=== PATIENT | female | born 1945 | race Caucasian/White ===

== ENCOUNTER → 2016-11-03 | Outpatient (CLI) | payer OTHER, BC ==
[~2016-11-03] MED LIST: ACET-1311 PO; ADVIN50050 INH; ALBUAER2 INH; CETI10TA84 PO; FLUO20CA35 PO; GLC500 PO; INSPMPHMLG; LISD40CA PO; LISI1TAB3 PO; ZCRT/40 PO
[2016-11-03 09:56] LABS: ESTIMATED AVERAGE GLUCOSE 169 mg/dl; HA1C FLAG Normal (Normal)
[2016-11-03 10:07] LABS: ALT/SGPT 27 U/L (12-78); BLOOD UREA NITROGEN 20 mg/dl (7-18); BUN/CREATININE RATIO 21.8 (10-20); CALCIUM 9.8 mg/dl (8.5-10.1); CARBON DIOXIDE 32 mmol/L (21-32); CHLORIDE 106 mmol/L (98-107); CREATININE 0.91 mg/dl (0.60-1.20); GLUCOSE 132 mg/dl (70-99); POTASSIUM 4.2 mmol/L (3.5-5.1); SODIUM 140 mmol/L (136-145)
[2016-11-03 10:19] LABS: CHOLESTEROL 210 mg/dl (0-200); CHOLESTEROL/HDL RATIO 4.4; HDL CHOLESTEROL 48 mg/dl; LDL CHOLESTEROL CALCULATED 107 mg/dl; TRIGLYCERIDES 274 mg/dl (0-150); VERY LOW DENSITY LIPOPROT CALC 55 mg/dl
[2016-11-03 10:25] LABS: RATIO 23.2 mcg/mg (0-30.0)
== END | disposition home or self-care (01) ==
LOC: C.LAB1850 08:25
PROVIDERS: ATTEND Family Medicine
DX: I10 Essential (primary) hypertension (principal); E11.49 Type 2 diabetes mellitus with other diabetic neurological complication

== ENCOUNTER → 2017-05-06 | Outpatient (CLI) | payer OTHER, BC ==
[2017-05-06 09:50] LABS: ALT/SGPT 20 U/L (12-78); BLOOD UREA NITROGEN 20 mg/dl (7-18); CALCIUM 9.4 mg/dl (8.5-10.1); CARBON DIOXIDE 29 mmol/L (21-32); CHOLESTEROL 186 mg/dl (0-200); CREATININE 0.95 mg/dl (0.60-1.20); GLUCOSE 172 mg/dl (70-99); POTASSIUM 4.2 mmol/L (3.5-5.1); SODIUM 135 mmol/L (136-145)
[2017-05-06 09:53] LABS: LDL CHOLESTEROL CALCULATED 93 mg/dl
[2017-05-06 09:56] LABS: HEMOGLOBIN A1C 7.5 % (4.5-5.6)
== END | disposition home or self-care (01) ==
LOC: C.LAB1850 08:17
PROVIDERS: ATTEND Nurse Practitioner Family
DX: I10 Essential (primary) hypertension (principal); E78.5 Hyperlipidemia, unspecified; E11.49 Type 2 diabetes mellitus with other diabetic neurological complication

== ENCOUNTER → 2017-07-06 | Outpatient (CLI) | payer OTHER, BC ==
--- NOTE | 2017-07-06 14:57 | MAMMOGRAPHY REPORT ---
BILATERAL DIGITAL SCREENING MAMMOGRAM TOMOSYNTHESIS WITH CAD: 07/06/2017 CLINICAL HISTORY: Routine screening. Patient has no complaints. TECHNIQUE: Breast tomosynthesis in addition to standard 2D mammography was performed. Current study was also evaluated with a Computer Aided Detection (CAD) system. COMPARISON: Comparison is made to exams dated: 04/17/2014 mammogram, 04/13/2013 mammogram, 2 mammogram, 03/19/2011 mammogram, 10/23/2009 mammogram, and 08/30/2005 mammogram - [facility]. BREAST COMPOSITION: There are scattered areas of fibroglandular density in both breasts. FINDINGS: No suspicious masses, calcifications, or areas of architectural distortion are noted in ei ther breast. There has been no significant interval change compared to prior exams. Scattered bilate ral benign-appearing calcifications are again noted. IMPRESSION: ACR BI-RADS CATEGORY 2: BENIGN There is no mammographic evidence of malignancy. A 1 year screening mammogram is recommended. The pa tient will receive written notification of the results. Approximately 10% of breast cancers are not detected with mammography. A negative mammographic report should not delay biopsy if a clinically suggestive mass is present. Karen Aldrich M.D. /:07/06/2017 12:34:58 Impression Printer: Amarilis MITTAL(Ya)(M), [facility] letter sent: Normal 1/2 BI-RADS Code: ACR BI-RADS Category 2: Benign
== END | disposition home or self-care (01) ==
LOC: C.MAMM 10:03
PROVIDERS: ATTEND Family Medicine
DX: Z12.31 Encounter for screening mammogram for malignant neoplasm of breast (principal); M85.80 Other specified disorders of bone density and structure, unspecified site

== ENCOUNTER 2022-06-25 16:53 | Inpatient (IN) ==
[2022-06-25 18:10] LABS: Hematocrit (blood only) 43.3 % (37.0-47.0); Hemoglobin 15.4 g/dl (12.0-16.0); Mean Corpuscular Hemoglobin 31.7 pg (25.0-34.0); Mean Corpuscular Hgb Conc 35.6 g/dL (32.0-36.0); Mean Corpuscular Volume 89.1 fL (80.0-100.0); RDW Coefficient of Variation 12.9 % (11.5-14.5); RDW Standard Deviation 42.1 fL (36.4-46.3); Red Blood Count 4.86 M/uL (4.20-5.40); White Blood Count 9.92 K/ul (4.8-10.8)
[2022-06-25] MEDS ORDERED: NITROGLYCERIN 2% OINTMENT 30GM TUBE EXT STA (18:16)
[2022-06-25] MEDS ORDERED: FAMOTIDINE 20MG IV PUSH 20 MG/5 ML SYR IV STA (18:16)
[2022-06-25] MEDS ORDERED: PANTOprazole 40 MG in SYRINGE 0 ML IV ONE (18:16)
[2022-06-25 18:20] LABS: Basophils # (auto) 0.06 K/uL (0-0.2); Basophils % (auto) 0.6 %; Eosinophils # (auto) 0.05 K/uL (0-0.50); Eosinophils % (auto) 0.5 %; Immature Granulocytes # (auto) 0.06 K/uL (0.01-0.20); Immature Granulocytes % (auto) 0.6 %; Lymphocytes # (auto) 2.07 K/uL (1.2-3.4); Lymphocytes % (auto) 20.9 %; Mean Platelet Volume 11.6 fL (9.4-12.4); Monocytes # (auto) 0.66 K/uL (0.11-0.59); Monocytes % (auto) 6.7 %; Neutrophils # (auto) 7.02 K/uL (1.40-6.50); Neutrophils % (auto) 70.7 %; Platelet Count 158 K/uL (130-400); Platelet Estimate Normal (Normal)
[2022-06-25] MEDS ORDERED: SODIUM CHLORIDE 0.9% 1000ML 1,000 ML IV ONE (18:20)
--- NOTE | 2022-06-25 18:20 | Emergency Department Note ---
Impression & Plan Precordial chest pain, Acute hyperglycemia, SOB (shortness of breath), Acute hyponatremia ED Provider Note NAME: MELVIN CHOWDHURY AGE: 76 SEX: F : 1945 ARRIVES VIA: Ambulance INFORMANT: [Patient][ems] ED PROVIDER(S): [Woody Ruelas MD] CHIEF COMPLAINT: Chest pain HISTORY OF PRESENT ILLNESS: The patient is a 76-year-old female who presents with some chest discomfort that was an 8 and is now with 3. She received 3 nitroglycerin in route and this seemed to make the pain better. She admits that the pain has been with her all day intermittently but then worsened before coming in. The patient describes some mild shortness of breath. No pain radiation. She has not had fever or cough. The patient states that she recently finished prednisone, she stopped 3 days ago. She states that her blood sugar is now quite high. As per EMS, the sugar was 447. Today, in addition to the chest pain, the patient has felt dizzy and weak. She also has had some reflux type symptoms and some pain in the epigastrium, she wonders if she may have gastritis. She has not taken any stomach meds so far. PMHx/PSHx: See Below SOCIAL HISTORY: See Below. PHYSICAL EXAM: GENERAL: Patient is in no acute distress. HEENT: No acute trauma, normocephalic atraumatic, mucous membranes moist, no nasal congestion. NECK: No stridor, no adenopathy, no meningismus, trachea is midline. LUNGS: Clear to auscultation bilaterally, no wheeze, no rhonchi, breath sounds equal. HEART: Without murmurs gallops or rubs, regular rate and rhythm. ABDOMEN: Soft, mildly tender in the epigastrium, no peritonitis. EXTREMITIES: No cyanosis or edema, full range of motion of all the joints without pain or difficulty, no signs for acute trauma. NEUROLOGIC: Oriented x 3, no acute motor or sensory deficits, no focal weakness. SKIN: No rash, no jaundice, no diaphoresis. DIFFERENTIAL DIAGNOSIS: Cardiac ischemia, PR, reflux, gastritis, hyperglycemia, dehydration, electrolyte imbalance, among others. EMERGENCY DEPARTMENT COURSE/PROCEDURES: Prior/Outside records reviewed: EMS records. ECG per my interpretation: Indication was chest pain. The ECG shows a sinus tachycardia with a rate of 106. There is T wave inversion in the high lateral leads. No ST elevation, no PVCs. The QTc is 446. Compared to an ECG from 20 April 2019, the rate has increased. Continuous Cardiac Monitoring per my interpretation: An order was placed for continuous cardiac monitoring. The monitor shows a rate of 97 with normal sinus rhythm.. MEDICAL DECISION MAKING: There is no leukocytosis or concerning anemia. There is a normal platelet count. No coagulopathy. Sodium was low, likely from her higher blood sugar. Blood sugar was over 400. No concerning liver enzyme elevation. ECG showed sinus tachycardia with some T wave inversions in the high lateral leads. No change compared to old ECGs. Cardiac troponin was slightly elevated. This elevation could be secondary to cardiac strain or potentially mismatch. Chest film per my review did not show mediastinal widening, pneumonia or pneumothorax. COVID, influenza and RSV test returned negative. The patient was given IV saline, 1 L. She was given IV Protonix, 1 inch of nitroglycerin paste. She was given IV insulin and IV Pepcid. Patient is feeling improved, given the chest pain improvement with nitroglycerin, given her cardiac risk factors, I do think a hospital stay for further cardiac work-up would be warranted. In addition, patient is hyperglycemic and this will need addressed as well. I suspect the hyperglycemia may be from her recent steroid use. I spoke with the patient and case management, the on-call hospitalist was consulted. Of note, the patient's blood sugar has improved since treatment here in the ED, sugar is now in the 200s. DISPOSITION: Patient's presentation and findings warrant a hospital stay. Past Med/Surg History Medical History Adult ADHD Anxiety disorder Asthma no res inh use for over a year Chronic upper back pain Depression Dyslipidemia Esophageal reflux disease controlled, stable per pt Gluten enteropathy Hearing difficulty Hypertension controlled, stable per pt Obesity Osteopenia Pulmonary nodules monitoring with PCP Skin cancer, basal cell pubic, removed Type 2 diabetes mellitus, with long-term current use of insulin Surgical History History of cataract surgery History of left knee replacement History of tooth extraction Hx of hand surgery S/P appendectomy S/P cholecystectomy S/P emergency section S/P hysterectomy Status post carpal tunnel release of both wrists Status post debridement of bone spur Family History Mother Breast cancer Myocardial infarction Sister Breast cancer Myocardial infarction Uterine cancer Father Myocardial infarction Grandmother Diabetes Grandfather Stroke syndrome Alcohol abuse Family/Other Myocardial infarction Denies family history of Colon cancer Ovarian cancer Prostate cancer Social History Smoking Status: Former smoker Tobacco Type: Cigarettes Age Started Using Tobacco: 14; Age Quit Using Tobacco: 39; packs per day: 1; Cigarettes Per Day: 20; Second Hand Exposure: Yes (mother smoked); Hx Alcohol Use: No Hx Substance Use: No Preferred Language: Lithuanian Communication Ability: Effective Visual Impairment: No Limitations Hearing Ability: Normal Compliance Examiner Required: No Beliefs That Will Affect Care: None marital status: Current Living Situation: Spouse current occupational status: employed 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 Feels Safe at Home: Yes Safety Concerns: Feels Safe At This Time Childhood Exposure to Second-Hand Smoke: No Diet Comment: regular caffeine: Yes during the past year weight has: remained stable Dental Care, Regularly: Yes Physical Activity Frequency: Does not Exercise Seatbelt Use: always Sunscreen Use: Yes Assistive Devices: Glasses Allergies Allergies Allergy/AdvReac Type Severity Reaction Status Date / Time aspirin Allergy Severe SWELLING, Verified 06/25/22 19:36 ANAPHYLACTIC RXN ibuprofen Allergy Severe SWELLING, Verified 06/25/22 19:36 ANAPHYLACTIC RXN NSAIDS (Non-Steroidal Allergy Severe anaphylaxis Verified 06/25/22 19:36 Anti-Inflamma geri Allergy Severe SOB Verified 06/25/22 19:36 Sulfa (Sulfonamide Allergy Severe Anaphylaxis Verified 06/25/22 19:36 Antibiotics) adhesive Allergy Intermediate rash Verified 06/25/22 19:36 gluten Allergy Intermediate ASTHMA Verified 06/25/22 19:36 peanut AdvReac Intermediate Flatulence Verified 06/25/22 19:36 Home Meds Home Medications Medication Instructions Recorded Confirmed cholecalciferol (vitamin D3) 25 4,000 unit PO QAM 12/03/18 06/25/22 mcg (1,000 unit) tablet cyanocobalamin (vitamin B-12) 500 500 mcg PO QAM #100 tabs 12/03/18 06/25/22 mcg tablet lisdexamfetamine 30 mg capsule 30 mg PO QAM #24 caps 12/03/18 06/25/22 (Vyvanse) lysine 500 mg tablet (L-Lysine) 500 mg PO QAM 04/20/19 06/25/22 fluoxetine 20 mg capsule (Prozac) 40 mg PO QAM 10/26/19 06/25/22 acetaminophen 500 mg tablet 500 mg PO BID 04/27/22 06/25/22 (Tylenol Extra Strength) albuterol sulfate 90 mcg/actuation 1 inh inhalation QID PRN Wheezing 04/27/22 06/25/22 breath activated powder inhaler ezetimibe 10 mg tablet 10 mg PO QAM 04/27/22 06/25/22 lisinopril 40 mg tablet (Zestril) 40 mg PO QAM 04/27/22 06/25/22 nystatin-triamcinolone 100,000 1 applic topical BID PRN Rash 04/27/22 06/25/22 unit/g-0.1 % topical cream verapamil 120 mg tablet,extended 120 mg PO QAM 04/27/22 06/25/22 release insulin lispro 100 unit/mL 65 unit continuous subcutaneous 06/25/22 06/25/22 subcutaneous solution (Humalog infusion CONTINOUS U-100 Insulin) Previous Rx's Medication Instructions Recorded atorvastatin 40 mg tablet (Lipitor) 40 mg PO HS #90 tabs 07/15/20 Contour Next Test Strips (blood #360 ea 04/07/21 sugar diagnostic) diclofenac sodium 1 % topical gel 2 g topical QID #100 grams 10/28/21 oxycodone 5 mg tablet 2.5 mg PO Q6H PRN pain (scale 12/16/21 score 7-10) #10 tabs metformin 500 mg tablet,extended 1,000 mg PO BID 30 days #120 tabs 03/23/22 release 24 hr baclofen 5 mg tablet 5 - 10 mg PO DAILY PRN pain #20 06/09/22 tabs Results & Data (ED) Vital Signs Vital Signs - 24 hr 06/25/22 17:18 06/25/22 17:37 06/25/22 16:59 Temperature 37.1 C Temperature Source Oral Pulse Rate 102 H 97 H 106 H Pulse Rate [Apical] Pulse Rate from SpO2 Sensor 106 H Pulse Rhythm Regular Regular Pulse Strength Normal Respiratory Rate 16 16 15 Respiratory Effort / Characteristics Non-Labored Spontaneous Respiratory Depth Normal Respiratory Pattern Regular Blood Pressure 163/94 H Blood Pressure [Right Arm] Blood Pressure Mean 117 Blood Pressure Mean [Right Arm] Pulse Oximetry 94 95 96 Oxygen Delivery Method Room Air Room Air Sepsis Recent Fever Within 48 Hours No Sepsis New/Unexplained Change in Mental Status N/A Sepsis Action Taken by Nursing No Action Required 06/25/22 17:00 06/25/22 17:00 06/25/22 17:10 Temperature Temperature Source Pulse Rate 105 H 100 H Pulse Rate [Apical] Pulse Rate from SpO2 Sensor 105 H 93 H Pulse Rhythm Pulse Strength Respiratory Rate 18 17 Respiratory Effort / Characteristics Respiratory Depth Respiratory Pattern Blood Pressure 163/94 H Blood Pressure [Right Arm] Blood Pressure Mean 117 Blood Pressure Mean [Right Arm] Pulse Oximetry 96 95 Oxygen Delivery Method Sepsis Recent Fever Within 48 Hours Sepsis New/Unexplained Change in Mental Status Sepsis Action Taken by Nursing 06/25/22 17:20 06/25/22 17:30 06/25/22 17:30 Temperature Temperature Source Pulse Rate 100 H 99 H Pulse Rate [Apical] Pulse Rate from SpO2 Sensor 101 H 99 H Pulse Rhythm Pulse Strength Respiratory Rate 18 22 Respiratory Effort / Characteristics Respiratory Depth Respiratory Pattern Blood Pressure 141/91 H Blood Pressure [Right Arm] Blood Pressure Mean 107 Blood Pressure Mean [Right Arm] Pulse Oximetry 96 95 Oxygen Delivery Method Sepsis Recent Fever Within 48 Hours Sepsis New/Unexplained Change in Mental Status Sepsis Action Taken by Nursing 06/25/22 17:40 06/25/22 17:50 06/25/22 18:00 Temperature Temperature Source Pulse Rate 95 H 96 H Pulse Rate [Apical] Pulse Rate from SpO2 Sensor 95 H 96 H Pulse Rhythm Pulse Strength Respiratory Rate 17 17 Respiratory Effort / Characteristics Respiratory Depth Respiratory Pattern Blood Pressure 151/91 H Blood Pressure [Right Arm] Blood Pressure Mean 111 Blood Pressure Mean [Right Arm] Pulse Oximetry 94 95 Oxygen Delivery Method Sepsis Recent Fever Within 48 Hours Sepsis New/Unexplained Change in Mental Status Sepsis Action Taken by Nursing 06/25/22 18:00 06/25/22 18:10 06/25/22 18:20 Temperature Temperature Source Pulse Rate 95 H 97 H 91 H Pulse Rate [Apical] Pulse Rate from SpO2 Sensor 95 H 97 H 91 H Pulse Rhythm Pulse Strength Respiratory Rate 17 20 15 Respiratory Effort / Characteristics Respiratory Depth Respiratory Pattern Blood Pressure Blood Pressure [Right Arm] Blood Pressure Mean Blood Pressure Mean [Right Arm] Pulse Oximetry 95 98 96 Oxygen Delivery Method Sepsis Recent Fever Within 48 Hours Sepsis New/Unexplained Change in Mental Status Sepsis Action Taken by Nursing 06/25/22 18:30 06/25/22 18:30 06/25/22 18:40 Temperature Temperature Source Pulse Rate 90 90 Pulse Rate [Apical] Pulse Rate from SpO2 Sensor 90 90 Pulse Rhythm Pulse Strength Respiratory Rate 19 15 Respiratory Effort / Characteristics Respiratory Depth Respiratory Pattern Blood Pressure 170/82 H Blood Pressure [Right Arm] Blood Pressure Mean 111 Blood Pressure Mean [Right Arm] Pulse Oximetry 96 98 Oxygen Delivery Method Sepsis Recent Fever Within 48 Hours Sepsis New/Unexplained Change in Mental Status Sepsis Action Taken by Nursing 06/25/22 18:50 06/25/22 19:36 06/25/22 19:00 Temperature Temperature Source Pulse Rate 85 87 Pulse Rate [Apical] 85 Pulse Rate from SpO2 Sensor 85 Pulse Rhythm Pulse Strength Respiratory Rate 28 H 20 15 Respiratory Effort / Characteristics Non-Labored Respiratory Depth Normal Respiratory Pattern Blood Pressure Blood Pressure [Right Arm] 163/79 H Blood Pressure Mean Blood Pressure Mean [Right Arm] 107 Pulse Oximetry 98 98 Oxygen Delivery Method Room Air Sepsis Recent Fever Within 48 Hours Sepsis New/Unexplained Change in Mental Status Sepsis Action Taken by Nursing 06/25/22 19:01 06/25/22 19:01 06/25/22 19:15 Temperature Temperature Source Pulse Rate 84 87 Pulse Rate [Apical] Pulse Rate from SpO2 Sensor 87 Pulse Rhythm Pulse Strength Respiratory Rate 22 17 Respiratory Effort / Characteristics Respiratory Depth Respiratory Pattern Blood Pressure 152/87 H Blood Pressure [Right Arm] Blood Pressure Mean 108 Blood Pressure Mean [Right Arm] Pulse Oximetry 96 Oxygen Delivery Method Sepsis Recent Fever Within 48 Hours Sepsis New/Unexplained Change in Mental Status Sepsis Action Taken by Nursing 06/25/22 19:30 06/25/22 19:30 06/25/22 19:45 Temperature Temperature Source Pulse Rate 87 91 H Pulse Rate [Apical] Pulse Rate from SpO2 Sensor 88 91 H Pulse Rhythm Pulse Strength Respiratory Rate 19 18 Respiratory Effort / Characteristics Respiratory Depth Respiratory Pattern Blood Pressure 163/79 H Blood Pressure [Right Arm] Blood Pressure Mean 107 Blood Pressure Mean [Right Arm] Pulse Oximetry 96 97 Oxygen Delivery Method Sepsis Recent Fever Within 48 Hours Sepsis New/Unexplained Change in Mental Status Sepsis Action Taken by Nursing 06/25/22 20:01 06/25/22 20:15 06/25/22 20:30 Temperature Temperature Source Pulse Rate 93 H 89 Pulse Rate [Apical] Pulse Rate from SpO2 Sensor 93 H 89 Pulse Rhythm Pulse Strength Respiratory Rate 22 20 Respiratory Effort / Characteristics Respiratory Depth Respiratory Pattern Blood Pressure 142/89 H Blood Pressure [Right Arm] Blood Pressure Mean 106 Blood Pressure Mean [Right Arm] Pulse Oximetry 96 96 Oxygen Delivery Method Sepsis Recent Fever Within 48 Hours Sepsis New/Unexplained Change in Mental Status Sepsis Action Taken by Nursing 06/25/22 20:30 Temperature Temperature Source Pulse Rate 86 Pulse Rate [Apical] Pulse Rate from SpO2 Sensor 87 Pulse Rhythm Pulse Strength Respiratory Rate 16 Respiratory Effort / Characteristics Respiratory Depth Respiratory Pattern Blood Pressure Blood Pressure [Right Arm] Blood Pressure Mean Blood Pressure Mean [Right Arm] Pulse Oximetry 96 Oxygen Delivery Method Sepsis Recent Fever Within 48 Hours Sepsis New/Unexplained Change in Mental Status Sepsis Action Taken by [facility] Medications Current Medication List: was personally reviewed by me Laboratory Data Attestation: I reviewed the patient's lab results. 06/25/22 17:02 06/25/22 17:02 Lab Results 06/25/22 06/25/22 06/25/22 Range/Units 17:02 17:02 17:02 WBC 9.92 (4.8-10.8) K/ul RBC 4.86 (4.20-5.40) M/uL Hgb 15.4 (12.0-16.0) g/dl Hct 43.3 (37.0-47.0) % MCV 89.1 (80.0-100.0) fL MCH 31.7 (25.0-34.0) pg MCHC 35.6 (32.0-36.0) g/dL RDW Std Deviation 42.1 (36.4-46.3) fL RDW Coeff of Matheus 12.9 (11.5-14.5) % Plt Count 158 (130-400) K/uL MPV 11.6 (9.4-12.4) fL Immature Gran % (Auto) 0.6 % Neut % (Auto) 70.7 % Lymph % (Auto) 20.9 % [place] % (Auto) 6.7 % Eos % (Auto) 0.5 % Baso % (Auto) 0.6 % Neut # (Auto) 7.02 H (1.40-6.50) K/uL Lymph # (Auto) 2.07 (1.2-3.4) K/uL [place] # (Auto) 0.66 H (0.11-0.59) K/uL Eos # (Auto) 0.05 (0-0.50) K/uL Baso # (Auto) 0.06 (0-0.2) K/uL Immature Gran # (Auto) 0.06 (0.01-0.20) K/uL Platelet Estimate Normal (Normal) PT 10.5 (9.0-12.0) Seconds INR 1.0 (0.9-1.1) APTT 20.8 L (21.0-31.0) Seconds PTT Ratio 0.8 Sodium 130 L (136-145) mmol/L Potassium 4.5 (3.5-5.1) mmol/L Chloride 97 L (98-107) mmol/L Carbon Dioxide 23 (21-32) mmol/L Anion Gap 10 (3-11) BUN 31 H (6-23) mg/dl Creatinine 1.00 (0.6-1.2) mg/dl Est Cr Clr Drug Dosing Not Reportable Est GFR ( Amer) 62.5 ml/min Est GFR (Non-Af Amer) 53.9 ml/min BUN/Creatinine Ratio 31.0 H (10-20) Glucose 414 H* (70-99(Fasting)) mg/dl Calcium 10.0 (8.5-10.1) mg/dl Magnesium 1.9 (1.7-2.4) mg/dl Total Bilirubin 0.8 (0.2-1.0) mg/dl AST 12 L (13-39) U/L ALT 17 (7-52) U/L Alkaline Phosphatase 43 (34-104) U/L Troponin I High Sens 14.8 H (0-14) pg/ml Total Protein 6.7 (6.0-8.3) gm/dl Albumin 3.9 (3.4-5.0) gm/dl Globulin 2.8 (2.5-4.0) gm/dl Albumin/Globulin Ratio 1.4 (0.9-2) SARS-CoV-2 (PCR) (Negative) Influenza Type A (PCR) (Neg) Influenza Type B (PCR) (Neg) RSV (RT-PCR) (Neg) 03/09/23 Range/Units 18:50 WBC (4.8-10.8) K/ul RBC (4.20-5.40) M/uL Hgb (12.0-16.0) g/dl Hct (37.0-47.0) % MCV (80.0-100.0) fL MCH (25.0-34.0) pg MCHC (32.0-36.0) g/dL RDW Std Deviation (36.4-46.3) fL RDW Coeff of Matheus (11.5-14.5) % Plt Count (130-400) K/uL MPV (9.4-12.4) fL Immature Gran % (Auto) % Neut % (Auto) % Lymph % (Auto) % [place] % (Auto) % Eos % (Auto) % Baso % (Auto) % Neut # (Auto) (1.40-6.50) K/uL Lymph # (Auto) (1.2-3.4) K/uL [place] # (Auto) (0.11-0.59) K/uL Eos # (Auto) (0-0.50) K/uL Baso # (Auto) (0-0.2) K/uL Immature Gran # (Auto) (0.01-0.20) K/uL Platelet Estimate (Normal) PT (9.0-12.0) Seconds INR (0.9-1.1) APTT (21.0-31.0) Seconds PTT Ratio Sodium (136-145) mmol/L Potassium (3.5-5.1) mmol/L Chloride (98-107) mmol/L Carbon Dioxide (21-32) mmol/L Anion Gap (3-11) BUN (6-23) mg/dl Creatinine (0.6-1.2) mg/dl Est Cr Clr Drug Dosing Est GFR ( Amer) ml/min Est GFR (Non-Af Amer) ml/min BUN/Creatinine Ratio (10-20) Glucose (70-99(Fasting)) mg/dl Calcium (8.5-10.1) mg/dl Magnesium (1.7-2.4) mg/dl Total Bilirubin (0.2-1.0) mg/dl AST (13-39) U/L ALT (7-52) U/L Alkaline Phosphatase (34-104) U/L Troponin I High Sens (0-14) pg/ml Total Protein (6.0-8.3) gm/dl Albumin (3.4-5.0) gm/dl Globulin (2.5-4.0) gm/dl Albumin/Globulin Ratio (0.9-2) SARS-CoV-2 (PCR) NEGATIVE (Negative) Influenza Type A (PCR) Negative (Neg) Influenza Type B (PCR) Negative (Neg) RSV (RT-PCR) Negative (Neg) Administered Medications Insulin Aspart (Insulin Aspart Per Unit) 0 units SC ACHS ARELY Stop: 07/25/22 23:29 Last Admin: 06/25/22 23:41 Dose: 7 units Documented By: CHRISTEL Co-signed By: JAYDEN Discontinued Medications Enoxaparin Sodium (Enoxaparin Inj 40 Mg/0.4 Ml Syr) 40 mg SQ ONE ONE Stop: 06/25/22 23:01 Last Admin: 06/25/22 23:40 Dose: 40 mg Documented By: CHRISTEL Famotidine (Pepcid 20mg Iv Push) 20 mg in 5 mls @ 2.5 mls/min IV NOW STA Stop: 06/25/22 18:17 Last Admin: 06/25/22 18:33 Dose: 2.5 mls/min Documented By: BUCK Pantoprazole Sodium 40 mg/ (Syringe) 10 mls @ 5 mls/min IV NOW ONE Stop: 06/25/22 18:17 Last Admin: 06/25/22 20:17 Dose: 5 mls/min Documented By: BUCK Sodium Chloride (Nss 1000ml) 1,000 mls @ 999 mls/hr IV .Q1H1M ONE Stop: 06/25/22 19:20 Last Infusion: 06/25/22 19:36 Dose: 0 mls/hr Documented By: Admin: 06/25/22 18:34 Dose: 999 mls/hr Documented By: BUCK Insulin Human Regular (Novolin-R Insulin Per Unit Charge) 8 units IV NOW STA Stop: 06/25/22 19:11 Last Admin: 06/25/22 19:34 Dose: 8 units Documented By: TRENT Co-signed By: BUCK Nitroglycerin (Nitroglycerin 2% Ointment 30gm Tube) 1 inch EXT NOW STA Stop: 06/25/22 18:17 Last Admin: 06/25/22 18:33 Dose: 1 inch Documented By: BUCK Imaging Data Attestation: I personally reviewed and interpreted this imaging study as follows: My Impression: Chest x-ray per my review: There is no pneumonia, pneumothorax or mediastinal widening. Discharge Plan Visit Data Chief Complaint: Chest Pain ED Provider: Woody Ruelas Discharge Problem: Precordial chest pain, Acute hyperglycemia, SOB (shortness of breath), Acute hyponatremia Patient Disposition: Admitted As Inpatient Condition: Good Discharge Instructions Interventions: ED Discharge Assessment Last Done: 06/25/22 22:25
[2022-06-25 18:28] LABS: Alanine Aminotransferase 17 U/L (7-52); Albumin Globulin Ratio 1.4 (0.9-2); Albumin Level 3.9 gm/dl (3.4-5.0); Alkaline Phosphatase 43 U/L (34-104); Anion Gap 10 (3-11); Aspartate Aminotransferase 12 U/L (13-39); Bilirubin,Total 0.8 mg/dl (0.2-1.0); Blood Urea Nitrogen 31 mg/dl (6-23); Carbon Dioxide 23 mmol/L (21-32); Chloride 97 mmol/L (98-107); Est GFR (African American) 62.5 ml/min; Est GFR (Non-African American) 53.9 ml/min; Globulin 2.8 gm/dl (2.5-4.0); Glucose 414 mg/dl (70-99(Fasting)); Potassium 4.5 mmol/L (3.5-5.1); Sodium 130 mmol/L (136-145); Total Protein 6.7 gm/dl (6.0-8.3); Troponin I High Sensitivity 14.8 pg/ml (0-14)
[2022-06-25 18:39] LABS: Partial Thromboplastin Ratio 0.8; Partial Thromboplastin Time 20.8 Seconds (21.0-31.0); Prothrombin Time 10.5 Seconds (9.0-12.0)
[2022-06-25 18:52] LABS: Magnesium 1.9 mg/dl (1.7-2.4)
[2022-06-25] MEDS ORDERED: NovoLIN-R INSULIN PER UNIT CHARGE IV STA (19:10)
[2022-06-25 19:43] LABS: Influenza A virus by PCR Negative (Neg); Influenza B virus by PCR Negative (Neg); RSV by PCR Negative (Neg); SARS CoV2 RNA(COVID-19) Ceph NEGATIVE (Negative)
--- NOTE | 2022-06-25 20:15 | History & Physical Report ---
Patient seen and examined. I agree with the history and physical and the plan as outlined in the resident's note. Date of Service June 25, 2022 Assessment & Plan (1) Chest pain: (2) Esophageal reflux disease: (3) Type 2 diabetes mellitus, with long-term current use of insulin: (4) Asthma: (5) Gluten enteropathy: (6) Dyslipidemia: (7) Depression: (8) Anxiety disorder: (9) Hypertension: (10) Hyponatremia: Plan Trinh is a 76F with history of T2DM on insulin, osteopenia, gluten enteropathy, osteoarthritis, GERD, dyslipidemia, depression anxiety, asthma, SNHL, and HTN who presents for evaluation of chest pain. Chest Pain - Acute episode of chest tightness starting at 3PM, ongoing, but tapering away - Patient describes as a bandlike sensation around her chest, a/w epigastric discomfort and substernal pressure - Troponin elevation 14.8, repeat pending - EKG sinus w/o evidence of acute ischemia, repeat ordered (CP ongoing) - Improvement with Nitro in route and Famotidine in ER - Plan CP r/o, admit to med/tele - Echo in 2019 only showing LVH w/ normal EF, Echo ordered - Patient has Saldaña's point at L 2nd intercostal space, consider OMT Epigastric Pain/ GERD - Acute episode of worsening epigastric pain and substernal pressure - Possible association/cause of CP given improvement with Famotidine - Famotidine 20 mg PO BID ordered, can add PPI as indicated - Patient states she has not been taking Baclofen, but symptoms worsened during course of steroids Hyperglycemia (in setting of T2DM on Insulin Pump) - Acute elevations of glucose levels (400+ on admission) - Patient s/p Regular Insulin 8 units in ER - Held insulin pump, placed orders for SSI - Glycemic consult placed - Continue to monitor closely Hyponatremia - Euvolemic on exam - Likely 2/2 acute elevation in glucose level - Patient s/p 1L NSS in ER - Repeat with AM labs Asthma - Chronic, has been stable w/o medical management for many years - Evidence of occasional expiratory wheeze in RANI - Patient not actively dyspneic, SpO2 stable on room air - Support PRN HTN - Continue home regimen Gluten Enteropathy - Gluten Free diet ordered Dyslipidemia - Home statin and ezetimibe held - Restart as indicated Anxiety/Depression - Continue home regimen FEN: Heart Healthy, Carb Consistent, Gluten Free Code status: DNR/DNI DVT ppx: Lovenox Isolation: None Dispo:Med/Tele History of Present Illness Chief Complaint: Chest Pain Primary Care Provider: Swetha Bryant MD Trinh is a 76F with history of T2DM on insulin, osteopenia, gluten enteropathy, osteoarthritis, GERD, dyslipidemia, depression anxiety, asthma, SNHL, and HTN who presents for evaluation of chest pain. Patient notes that she was seen by her PCP a few weeks ago for suspected torticollis and given a steroid taper. She states that while her neck pain has improved, she has been progressively feeling worse since starting the steroids. She notes that she presented to her PCP for acute left sided neck pain w/o radiation. Since then she has been experiencing epigastric pain, abdominal bloating, nausea, and decreased appetite. Despite her decreased appetite, her glucose levels have been elevated in the 400-500 range. She notes that she has been feeling unusually weak in the mornings and having a lot of diarrhea. She continues to urinate well w/o burning or suprapubic pressure. She notes that she has been mildly dyspneic over the last week and that she has a history of asthma that has been controlled without medication for years. Patient's primary reason for presentation today though was that she experienced an episode of tightness in her chest, she said this episode was not notably painful, but that she felt like she had a band tightening around her chest. She notes that it felt somewhat similar to back when she had asthma, like she could not fill her chest with air. She notes that her chest discomfort started around 3PM and while improved, has continued. Patient arrived via EMS and received Nitro x 3 en route, which she notes helped. She received additional relief when she received Famotidine in the ER, which improved her chest discomfort and abdominal pain. Of note, patient endorses difficulty walking her dog around the block over the last three days, she has pain in her legs from a knee injury that has been present for years, and she also notes that she has to elevate the head of her bed to sleep, but this is a chronic problem. Patient was at rest when her chest first started feeling tight this afternoon. She has not noted any recent chest pain with activity. Patient has a history of GERD, but she has not required any medication d/t lack of symptoms for years. Patient's DM is normally managed with a continuous insulin pump at 65 units of Humalog. She notes recent elevations up to 515. Patient expressed repeated concern about the amount of stress she has been in at home. Her is very ill and has a poor prognosis. She notes that this has been negatively affecting her health. She does follow with a therapist at [facility] and is actively managed with Vyvanse and Prozac. EMS: Nitroglycerin x 3, improvement ER: Nitroglycerin x 1, Famotidine, NaCl, Insulin Allergies Allergy/AdvReac Type Severity Reaction Status Date / Time aspirin Allergy Severe SWELLING, Verified 06/25/22 19:36 ANAPHYLACTIC RXN ibuprofen Allergy Severe SWELLING, Verified 06/25/22 19:36 ANAPHYLACTIC RXN NSAIDS (Non-Steroidal Allergy Severe anaphylaxis Verified 06/25/22 19:36 Anti-Inflamma geri Allergy Severe SOB Verified 06/25/22 19:36 Sulfa (Sulfonamide Allergy Severe Anaphylaxis Verified 06/25/22 19:36 Antibiotics) adhesive Allergy Intermediate rash Verified 06/25/22 19:36 gluten Allergy Intermediate ASTHMA Verified 06/25/22 19:36 peanut AdvReac Intermediate Flatulence Verified 06/25/22 19:36 Home Medications Medication Instructions Recorded Confirmed Type cholecalciferol (vitamin D3) 25 4,000 unit PO QAM 12/03/18 06/25/22 History mcg (1,000 unit) tablet cyanocobalamin (vitamin B-12) 500 500 mcg PO QAM #100 tabs 12/03/18 06/25/22 History mcg tablet lisdexamfetamine 30 mg capsule 30 mg PO QAM #24 caps 12/03/18 06/25/22 History (Vyvanse) lysine 500 mg tablet (L-Lysine) 500 mg PO QAM 04/20/19 06/25/22 History fluoxetine 20 mg capsule (Prozac) 40 mg PO QAM 10/26/19 06/25/22 History atorvastatin 40 mg tablet (Lipitor) 40 mg PO HS #90 tabs 07/15/20 06/25/22 Rx Contour Next Test Strips (blood #360 ea 04/07/21 06/15/22 Rx sugar diagnostic) diclofenac sodium 1 % topical gel 2 g topical QID #100 grams 10/28/21 06/25/22 Rx oxycodone 5 mg tablet 2.5 mg PO Q6H PRN pain (scale 12/16/21 06/25/22 Rx score 7-10) #10 tabs metformin 500 mg tablet,extended 1,000 mg PO BID 30 days #120 tabs 03/23/22 06/25/22 Rx release 24 hr acetaminophen 500 mg tablet 500 mg PO BID 04/27/22 06/25/22 History (Tylenol Extra Strength) albuterol sulfate 90 mcg/actuation 1 inh inhalation QID PRN Wheezing 04/27/22 06/25/22 History breath activated powder inhaler ezetimibe 10 mg tablet 10 mg PO QAM 04/27/22 06/25/22 History lisinopril 40 mg tablet (Zestril) 40 mg PO QAM 04/27/22 06/25/22 History nystatin-triamcinolone 100,000 1 applic topical BID PRN Rash 04/27/22 06/25/22 History unit/g-0.1 % topical cream verapamil 120 mg tablet,extended 120 mg PO QAM 04/27/22 06/25/22 History release baclofen 5 mg tablet 5 - 10 mg PO DAILY PRN pain #20 06/09/22 06/25/22 Rx tabs insulin lispro 100 unit/mL 65 unit continuous subcutaneous 06/25/22 06/25/22 History subcutaneous solution (Humalog infusion CONTINOUS U-100 Insulin) Past Med/Surg History Medical History Adult ADHD Anxiety disorder Asthma Chronic upper back pain Depression Dyslipidemia Esophageal reflux disease Gluten enteropathy Hearing difficulty Hypertension Obesity Osteopenia Pulmonary nodules Skin cancer, basal cell Type 2 diabetes mellitus, with long-term current use of insulin Surgical History History of cataract surgery History of left knee replacement History of tooth extraction Hx of hand surgery S/P appendectomy S/P cholecystectomy S/P emergency section S/P hysterectomy Status post carpal tunnel release of both wrists Status post debridement of bone spur Family History Mother Breast cancer Myocardial infarction Sister Breast cancer Myocardial infarction Uterine cancer Father Myocardial infarction Grandmother Diabetes Grandfather Stroke syndrome Alcohol abuse Family/Other Myocardial infarction Denies family history of Colon cancer Ovarian cancer Prostate cancer Social History Smoking Status: Former smoker Tobacco Type: Cigarettes Age Started Using Tobacco: 14; Age Quit Using Tobacco: 39; packs per day: 1; Cigarettes Per Day: 20; Second Hand Exposure: Yes (mother smoked); Hx Alcohol Use: No Hx Substance Use: No Preferred Language: Azeri Communication Ability: Effective Visual Impairment: No Limitations Hearing Ability: Normal Tire Buster Required: No Beliefs That Will Affect Care: None marital status: Current Living Situation: Spouse current occupational status: employed 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 Feels Safe at Home: Yes Childhood Exposure to Second-Hand Smoke: No Diet Comment: regular caffeine: Yes during the past year weight has: remained stable Dental Care, Regularly: Yes Physical Activity Frequency: Does not Exercise Seatbelt Use: always Sunscreen Use: Yes Assistive Devices: Glasses Review of Systems Review of Systems: As per HPI Physical Exam Physical Exam: Gen: NAD, alert, interactive HEENT: Supple, no LAD, no thyromegaly, no JVD Resp:Non-labored, occasional wheeze in RANI, no rhonchi/rales, otherwise CTAB CV:RRR, normal S1/S2, no M/R/G Abd: Soft, non-distended, epigastric/inferior sternal TTP, normoactive bowels, no masses * Patient has tender palpable nodule at 2nd intercoastal space on the left (cardiac Saldaña's point) Extr: 2+ dp bilaterally, no edema Skin: No rashes lesions or erythema Results & Data Results & Data ([facility]) Vital Signs (Past 12 Hours) Vital Signs Temp Pulse Pulse Resp BP BP Pulse Ox 06/25/22 19:36 85 20 163/79 H 98 06/25/22 18:50 85 28 H 98 06/25/22 18:40 90 15 98 06/25/22 18:30 90 19 96 06/25/22 18:30 170/82 H 06/25/22 18:20 91 H 15 96 06/25/22 18:10 97 H 20 98 06/25/22 18:00 95 H 17 95 06/25/22 18:00 151/91 H 06/25/22 17:50 96 H 17 95 06/25/22 17:40 95 H 17 94 06/25/22 17:30 99 H 22 95 06/25/22 17:30 141/91 H 06/25/22 17:20 100 H 18 96 06/25/22 17:10 100 H 17 95 06/25/22 17:00 105 H 18 96 06/25/22 17:00 163/94 H 06/25/22 16:59 106 H 15 96 06/25/22 17:37 97 H 16 95 06/25/22 17:18 37.1 C 102 H 16 163/94 H 94 O2 Del Method 06/25/22 19:36 Room Air 06/25/22 18:50 06/25/22 18:40 06/25/22 18:30 06/25/22 18:30 06/25/22 18:20 06/25/22 18:10 06/25/22 18:00 06/25/22 18:00 06/25/22 17:50 06/25/22 17:40 06/25/22 17:30 06/25/22 17:30 06/25/22 17:20 06/25/22 17:10 06/25/22 17:00 06/25/22 17:00 06/25/22 16:59 06/25/22 17:37 Room Air 06/25/22 17:18 Room Air Diagnostic Findings CXR Read Pending Resident Activity Tracking Resident Involvement: Resident Care Provided Care Provided: Adult Hospital Medicine (1) Chest pain Chest pain type: unspecified Qualified Code(s): R07.9 - Chest pain, unspecified
[2022-06-25] MEDS ORDERED: DEXTROSE 50% 50 ML SYRINGE IV PRN (22:50)
[2022-06-25] MEDS ORDERED: GLUCAGON FOR INJ 1 MG VIAL SQ PRN (22:50)
[2022-06-25] MEDS ORDERED: PHARMACY GLYCEMIC MGMT CONSULT PRN (22:50)
[2022-06-25] MEDS ORDERED: GLUCOSE 10 TAB/TUBE PO PRN (22:50)
[2022-06-25] MEDS ORDERED: GLUCOSE 40% GEL 15 GM TUBE PO PRN (22:50)
[2022-06-25] MEDS ORDERED: CARBOHYDRATES FOR HYPOGLYCEMIA PO PRN (22:50)
[2022-06-25] MEDS ORDERED: ACETAMINOPHEN 325 MG TAB PO PRN (22:50)
[2022-06-25] MEDS ORDERED: ENOXAPARIN INJ 40 MG/0.4 ML SYR SQ ONE (23:00)
[2022-06-25] MEDS ORDERED: ALBUTEROL HFA 8 GM INHALER INH PRN (23:16)
[2022-06-25] MEDS: INSULIN ASPART PER UNIT SC SCH (23:41)
[2022-06-26] MEDS ORDERED: INSULIN ASPART PER UNIT SC ONE (05:45)
--- NOTE | 2022-06-26 07:23 | XRay Report ---
XR chest 1V portable HISTORY: 76 years-old Female Chest pain, nonspecific acute chest pain COMPARISON: Chest CT 12/18/2021 TECHNIQUE: AP view of the chest FINDINGS: Cardiomediastinal and hilar silhouettes are within normal limits. Atherosclerosis of the aorta. No pn eumothorax, pleural effusion, airspace consolidation or pulmonary edema. Degenerative changes of the shoulders and spine. Left shoulder rotator cuff calcific tendinosis. IMPRESSION: No acute process. ACT 112: Negative or not required by law. The above report was generated using voice recognition software. It may contain grammatical, syntax o r spelling errors. Electronically signed by: uLis E Lozano M.D. 06/26/2022 7:21 AM
[2022-06-26] MEDS ORDERED: LANTUS PER UNIT CHARGE SQ SCH (08:00)
[2022-06-26] MEDS: FLUoxetine HCL 20 MG CAP PO SCH (08:01)
[2022-06-26] MEDS: lisinopril 40 MG TAB PO SCH (08:02)
[2022-06-26] MEDS: VERAPAMIL HCL 120 MG TABCR PO SCH (08:02)
[2022-06-26] MEDS: FAMOTIDINE 20 MG TAB PO SCH ×2 (08:02→19:49)
[2022-06-26] MEDS: INSULIN ASPART PER UNIT SC SCH ×3 (08:13→17:23)
[2022-06-26 08:36] LABS: Albumin Level 3.6 gm/dl (3.4-5.0); Bilirubin,Total 0.8 mg/dl (0.2-1.0); Calcium 9.2 mg/dl (8.5-10.1)
[2022-06-26 08:41] LABS: Troponin I High Sensitivity 13.5 pg/ml (0-14)
[2022-06-26 08:42] LABS: Albumin Globulin Ratio 1.6 (0.9-2); BUN Creatinine Ratio 21.5 (10-20); Creatinine Clr Calc Pharmacy 45.9 ml/min; Est GFR (African American) 68.2 ml/min; Est GFR (Non-African American) 58.9 ml/min; Globulin 2.3 gm/dl (2.5-4.0); Total Protein 5.9 gm/dl (6.0-8.3)
[2022-06-26 08:58] LABS: Hematocrit (blood only) 39.8 % (37.0-47.0); Hemoglobin 14.1 g/dl (12.0-16.0); Mean Corpuscular Hemoglobin 31.7 pg (25.0-34.0); Mean Corpuscular Hgb Conc 35.4 g/dL (32.0-36.0); Mean Corpuscular Volume 89.4 fL (80.0-100.0); Mean Platelet Volume 11.2 fL (9.4-12.4); Platelet Count 142 K/uL (130-400); RDW Coefficient of Variation 12.9 % (11.5-14.5); RDW Standard Deviation 42.7 fL (36.4-46.3); Red Blood Count 4.45 M/uL (4.20-5.40); White Blood Count 7.39 K/ul (4.8-10.8)
[2022-06-26 10:22] LABS: Estimated Average Glucose 229 mg/dl; Hemoglobin A1C 9.6 % (4.5-5.6)
[2022-06-26] MEDS ORDERED: ALUMINUM/MAGNESIUM SUSP 18 ML, LIDOCAINE VISCOUS 2% SOLN 6 ML, BARCODE IDENTIFIER 1 EACH PO ONE (10:30)
--- NOTE | 2022-06-26 12:27 | Hospitalist Progress Note ---
Date of Service June 26, 2022 Assessment & Plan (1) Chest pain: Plan: It was more like epigastric pain EKG did not show ant ST changes, Trops wnl Much better this morning, but says the pain recurs whenever she eats (2) Esophageal reflux disease: Plan: Most likely the reason for her epigastric pains Received some relief with protonix Will order GI cocktail (3) Diarrhea: Plan: complains of diarrhea whenever she eats Has a hx of IBD and gluten enteropathy Gluten free diet will check stool for C diff (4) Type 2 diabetes mellitus, with long-term current use of insulin: Plan: Blood glucose is now under better control Insulin pump suspended On sliding scale insulin (5) Asthma: Plan: not in exacerbation (6) Gluten enteropathy: Plan: Gluten free diet (7) Dyslipidemia: (8) Depression: (9) Anxiety disorder: (10) Hypertension: (11) Hyponatremia: Plan Possible d/c in the next 24 hrs Admission and Anticipated Discharge Date Admission Date: June 25, 2022 Subjective patient seen and examined, says epigastic pain is better, but complains of diarrhea whenever she eats Review of Systems Review of Systems: All systems reviewed are negative, apart from the ones contained in the history. Physical Exam Physical Exam: The patient is awake, alert and oriented 3, well developed and well nourished, normocephalic and atraumatic, lying in bed and in no acute distress. HEENT--PERRL, EOMI, mucous membranes and oropharynx mildly dry Neck--supple. No JVD. No bruits. Thyroid normal, trachea midline, no adenopathy. Heart--normal S1 and S2. No murmurs, rubs or gallops. Lungs--clear bilaterally, no respiratory distress, no accessory muscle use. Abdomen--normal bowel sounds and soft. Mild epigastric and left sided abdominal pain Extremities--no cyanosis or clubbing. No edema. Dermatologic--normal skin turgor, normal color, no abnormal lymph nodes, no rash. Neurologic--cranial nerves II through XII grossly intact. Rheumatologic--normal range of motion. Psychiatric--normal affect. Results & Data Results & Data ([facility]) Vital Signs (Past 12 Hours) Vital Signs Temp Pulse Pulse Resp BP BP Pulse Ox 06/26/22 10:52 97.3 F L 67 18 139/78 96 06/26/22 10:10 06/26/22 07:40 97.9 F 74 18 159/92 H 97 06/26/22 07:00 75 06/26/22 03:01 98.8 F 76 16 144/73 H 98 O2 Del Method 06/26/22 10:52 Room Air 06/26/22 10:10 Room Air 06/26/22 07:40 Room Air 06/26/22 07:00 06/26/22 03:01 Room Air PG Care Time/CCT Total # of Minutes Spent Total Time Spent with Patient: Total time spent is greater than 50% in coordination of care (as documented) at patient's floor/unit and/or counseling patient: Coding Level of Care Code 20692 SUB INP/OBS CARE 2/35MIN Diagnoses Chest pain R07.9 Chest pain type: unspecified Esophageal reflux disease K21.9 Diarrhea R19.7 Type 2 diabetes mellitus, with long-term current use of insulin E11.9; Z79.4 Asthma J45.909 Gluten enteropathy K90.41 Dyslipidemia E78.5 Depression F32.9 Anxiety disorder F41.9 Hypertension I10 Hyponatremia E87.1 Time Spent (min) 35 (1) Chest pain Chest pain type: unspecified Qualified Code(s): R07.9 - Chest pain, unspecified
--- NOTE | 2022-06-26 14:20 | Pharmacy Report ---
Pharmacy Glycemic Short Note 2 - Date of Service June 26, 2022 - Glycemic Short BSG Results (Last 24 hours): 06/25/22 06/25/22 06/26/22 17:02 23:08 04:57 Glucose 414 H* POC Glucose 261 H 208 H 06/26/22 06/26/22 07:28 07:39 Glucose 207 H POC Glucose 207 H OUTPATIENT ANTIDIABETIC REGIMEN: * Metformin * Humalog insulin pump * Settings per last outpatient DM visit: Basal 35 units/day, CF 27, CR, 1:9 * A1c = 9.6% ASSESSMENT: * Trinh is a 76 yo T2DM admitted with chest pain. * Severe hyperglycemia on admission. Her insulin pump was removed. Basal + bolus insulin started. * Fasting BSG 207 mg/dL. Patient was without basal insulin for several hours, therefore elevated fasting is not surprising. Will start Lantus 35 units daily. * Will continue home parameters for correction/carb coverage. * Add an overnight check given all BSGs >200 thus far today. PLAN FOR INPATIENT GLYCEMIC CONTROL: * Hold outpatient oral diabetes medications * Basal insulin * Lantus 35 units SQ daily * Bolus insulin * NovoLog per scale ACHS or Q6hrs while NPO * Goal Range: Low 110 mg/dL - High 140 mg/dL * Correction Factor: 25 mg/dL/unit * Nutritional / Prandial insulin per carb ratio of 1 unit per 9 grams CHO consumed
--- NOTE | 2022-06-26 17:10 | XCELERA ---
[id number]
[2022-06-26] MEDS ORDERED: ENOXAPARIN INJ 40 MG/0.4 ML SYR SQ SCH (21:00)
[2022-06-27] MEDS ORDERED: INSULIN ASPART PER UNIT SC SCH
[2022-06-27] MEDS: INSULIN ASPART PER UNIT SC SCH ×3 (01:34→12:13)
[2022-06-27 07:55] LABS: Hematocrit (blood only) 42.8 % (37.0-47.0); Hemoglobin 14.6 g/dl (12.0-16.0); Mean Corpuscular Hemoglobin 31.5 pg (25.0-34.0); Mean Corpuscular Hgb Conc 34.1 g/dL (32.0-36.0); Mean Corpuscular Volume 92.2 fL (80.0-100.0); Mean Platelet Volume 11.1 fL (9.4-12.4); Platelet Count 141 K/uL (130-400); RDW Coefficient of Variation 13.2 % (11.5-14.5); RDW Standard Deviation 44.6 fL (36.4-46.3); Red Blood Count 4.64 M/uL (4.20-5.40); White Blood Count 5.65 K/ul (4.8-10.8)
[2022-06-27] MEDS: FAMOTIDINE 20 MG TAB PO SCH (07:59)
[2022-06-27] MEDS: FLUoxetine HCL 20 MG CAP PO SCH (07:59)
[2022-06-27] MEDS: VERAPAMIL HCL 120 MG TABCR PO SCH (08:00)
[2022-06-27] MEDS: lisinopril 40 MG TAB PO SCH (08:00)
[2022-06-27] MEDS ORDERED: LANTUS PER UNIT CHARGE SQ SCH (08:00)
[2022-06-27 08:20] LABS: Anion Gap 5 (3-11); BUN Creatinine Ratio 19.8 (10-20); Blood Urea Nitrogen 20 mg/dl (6-23); Calcium 9.7 mg/dl (8.5-10.1); Carbon Dioxide 27 mmol/L (21-32); Chloride 104 mmol/L (98-107); Est GFR (African American) 61.7 ml/min; Est GFR (Non-African American) 53.3 ml/min; Glucose 241 mg/dl (70-99(Fasting)); Sodium 136 mmol/L (136-145)
--- NOTE | 2022-06-27 09:09 | Electrocardiogram Report ---
Test Reason : Blood Pressure : / mmHG Vent. Rate : 106 BPM Atrial Rate : 106 BPM P-R Int : 152 ms QRS Dur : 086 ms QT Int : 336 ms P-R-T Axes : 050 -35 081 degrees QTc Int : 446 ms Sinus tachycardia Left axis deviation Nonspecific ST abnormality Abnormal ECG When compared with ECG of 04-MAY-2022 14:14, Criteria for Septal infarct are no longer Present Confirmed by Linwood Stafford ([id number]) on 06/27/2022 9:08:43 AM Referred By: REFERRED SELF Confirmed By:Linwood Stafford
[2022-06-27] MEDS ORDERED: ALUMINUM/MAGNESIUM SUSP 18 ML, LIDOCAINE VISCOUS 2% SOLN 6 ML, BARCODE IDENTIFIER 1 EACH PO ONE (09:14)
--- NOTE | 2022-06-27 09:17 | Electrocardiogram Report ---
Test Reason : Blood Pressure : / mmHG Vent. Rate : 074 BPM Atrial Rate : 074 BPM P-R Int : 170 ms QRS Dur : 084 ms QT Int : 392 ms P-R-T Axes : 052 -30 111 degrees QTc Int : 435 ms Normal sinus rhythm Left axis deviation T wave abnormality, consider lateral ischemia Abnormal ECG When compared with ECG of 25-JUN-2022 16:57, (unconfirmed) T wave inversion more evident in Lateral leads Confirmed by Linwood Stafford ([id number]) on 06/27/2022 9:17:23 AM Referred By: REFERRED SELF Confirmed By:Linwood Stafford
--- NOTE | 2022-06-27 11:15 | Discharge Summary ---
Date of Service June 27, 2022 Admission HPI Per Admitting Provider Trinh is a 76F with history of T2DM on insulin, osteopenia, gluten enteropathy, osteoarthritis, GERD, dyslipidemia, depression anxiety, asthma, SNHL, and HTN who presents for evaluation of chest pain. Patient notes that she was seen by her PCP a few weeks ago for suspected torticollis and given a steroid taper. She states that while her neck pain has improved, she has been progressively feeling worse since starting the steroids. She notes that she presented to her PCP for acute left sided neck pain w/o radiation. Since then she has been experiencing epigastric pain, abdominal bloating, nausea, and decreased appetite. Despite her decreased appetite, her glucose levels have been elevated in the 400-500 range. She notes that she has been feeling unusually weak in the mornings and having a lot of diarrhea. She continues to urinate well w/o burning or suprapubic pressure. She notes that she has been mildly dyspneic over the last week and that she has a history of asthma that has been controlled without medication for years. Patient's primary reason for presentation today though was that she experienced an episode of tightness in her chest, she said this episode was not notably painful, but that she felt like she had a band tightening around her chest. She notes that it felt somewhat similar to back when she had asthma, like she could not fill her chest with air. She notes that her chest discomfort started around 3PM and while improved, has continued. Patient arrived via EMS and received Nitro x 3 en route, which she notes helped. She received additional relief when she received Famotidine in the ER, which improved her chest discomfort and abdominal pain. Of note, patient endorses difficulty walking her dog around the block over the last three days, she has pain in her legs from a knee injury that has been present for years, and she also notes that she has to elevate the head of her bed to sleep, but this is a chronic problem. Patient was at rest when her chest first started feeling tight this afternoon. She has not noted any recent chest pain with activity. Patient has a history of GERD, but she has not required any medication d/t lack of symptoms for years. Patient's DM is normally managed with a continuous insulin pump at 65 units of Humalog. She notes recent elevations up to 515. Patient expressed repeated concern about the amount of stress she has been in at home. Her is very ill and has a poor prognosis. She notes that this has been negatively affecting her health. She does follow with a therapist at [facility] and is actively managed with Vyvanse and Prozac. EMS: Nitroglycerin x 3, improvement ER: Nitroglycerin x 1, Famotidine, NaCl, Insulin Principal Diagnosis GERD Discharge Exam The patient is awake, alert and oriented 3, well developed and well nourished, normocephalic and atraumatic, lying in bed and in no acute distress. HEENT--PERRL, EOMI, mucous membranes and oropharynx mildly dry Neck--supple. No JVD. No bruits. Thyroid normal, trachea midline, no adenopathy. Heart--normal S1 and S2. No murmurs, rubs or gallops. Lungs--clear bilaterally, no respiratory distress, no accessory muscle use. Abdomen--normal bowel sounds and soft. Mild epigastric and left sided abdominal pain Extremities--no cyanosis or clubbing. No edema. Dermatologic--normal skin turgor, normal color, no abnormal lymph nodes, no rash. Neurologic--cranial nerves II through XII grossly intact. Rheumatologic--normal range of motion. Psychiatric--normal affect. Discharge Data Allergies Allergy/AdvReac Type Severity Reaction Status Date / Time aspirin Allergy Severe SWELLING, Verified 06/25/22 19:36 ANAPHYLACTIC RXN ibuprofen Allergy Severe SWELLING, Verified 06/25/22 19:36 ANAPHYLACTIC RXN NSAIDS (Non-Steroidal Allergy Severe anaphylaxis Verified 03/09/23 19:36 Anti-Inflamma geri Allergy Severe SOB Verified 06/25/22 19:36 Sulfa (Sulfonamide Allergy Severe Anaphylaxis Verified 06/25/22 19:36 Antibiotics) adhesive Allergy Intermediate rash Verified 06/25/22 19:36 gluten Allergy Intermediate ASTHMA Verified 06/25/22 19:36 peanut AdvReac Intermediate Flatulence Verified 06/25/22 19:36 Consultations 06/25/22 19:34 ED Decision to Admit Stat Hospital Course (1) Chest pain: It was more like epigastric pain EKG did not show ant ST changes, Trops wnl Much better this morning, but says the pain recurs whenever she eats (2) Esophageal reflux disease: Most likely the reason for her epigastric pains Received some relief with protonix GI cocktail gave her even more relief (3) Diarrhea: complains of diarrhea whenever she eats Has a hx of IBD and gluten enteropathy Gluten free diet will check stool for C diff (4) Type 2 diabetes mellitus, with long-term current use of insulin: Blood glucose is now under better control Insulin pump suspended On sliding scale insulin (5) Asthma: not in exacerbation (6) Gluten enteropathy: Gluten free diet (7) Dyslipidemia: (8) Depression: (9) Anxiety disorder: (10) Hypertension: (11) Hyponatremia: Plan d/c home Total Time Total Time Spent Total Time Spent (In Minutes): 35 Discharge Plan Discharge Items Patient Disposition: Home - Self-Care Reason For Visit: CHEST PAIN Discharge Diagnosis: GERD Condition on Discharge: Good Activity: Resume your previous activity Non-emergency contact: Primary Care Provider Call non-emergency contact if: you have any medication questions Follow-up/Referrals: Swetha Bryant MD [Primary Care Provider] - Diet: Regular Addtl Attending Provider Instructions: please make appointment to follow up with your regular PCP Pending Studies at Discharge: No Stand-Alone Forms: My [employer], Smoking Cessation Medications and DC Order Prescriptions: New pantoprazole [Protonix] 40 mg tablet,delayed release (DR/EC) 40 mg PO DAILY Qty: 30 0RF Continued atorvastatin [Lipitor] 40 mg tablet 40 mg PO HS Qty: 90 3RF (DME) Contour Next Test Strips Strip See Dose Instructions .ROUTE .MEDSUPPLY Qty: 360 3RF Dose Instruction: As directed Rx Instructions: Test 4 times daily metformin 500 mg tablet extended release 24 hr 1,000 mg PO BID 30 Days Qty: 120 5RF baclofen 5 mg tablet 5 - 10 mg PO DAILY PRN (Reason: pain) Qty: 20 0RF oxycodone 5 mg tablet 2.5 mg PO Q6H PRN (Reason: pain (scale score 7-10)) Qty: 10 0RF diclofenac sodium 1 % gel 2 g topical QID Qty: 100 2RF Rx Instructions: apply to knee cholecalciferol (vitamin D3) 1,000 unit (25 mcg) tablet 4,000 unit PO QAM cyanocobalamin (vitamin B-12) 500 mcg tablet 500 mcg PO QAM Qty: 100 Vyvanse 30 mg capsule 30 mg PO QAM Qty: 24 lysine [L-Lysine] 500 mg Tablet 500 mg PO QAM fluoxetine [Prozac] 20 mg capsule 40 mg PO QAM verapamil 120 mg tablet extended release 120 mg PO QAM Rx Instructions: Take 1 tablet by mouth once daily nystatin-triamcinolone 100,000-0.1 unit/g-% cream 1 applic topical BID PRN (Reason: Rash) lisinopril [Zestril] 40 mg tablet 40 mg PO QAM ezetimibe 10 mg tablet 10 mg PO QAM acetaminophen [Tylenol Extra Strength] 500 mg Tablet 500 mg PO BID albuterol sulfate 90 mcg/actuation Aerosol Powdr Breath Activated 1 inh INHALATION QID PRN (Reason: Wheezing) insulin lispro [Humalog U-100 Insulin] 100 unit/mL solution 65 unit continuous subcutaneous infusion CONTINOUS Rx Instructions: Via insulin pump ; TDD 65 units Discharge Orders: Discharge Order (Routine); Ordered 06/27/22 Ordered By: Chavez Ariza Admission Data Admit Date/Time: 06/25/22 21:03 Attending Provider: Chavez Ariza Admit Provider: Ilene Kerr Primary Care Provider: Swetha Bryant Other Providers: Jeremy Cardozo Coding Level of Care Code 84302 INP/OBS DISCH >30 MIN Diagnoses Chest pain R07.9 Chest pain type: unspecified Esophageal reflux disease K21.9 Diarrhea R19.7 Type 2 diabetes mellitus, with long-term current use of insulin E11.9; Z79.4 Asthma J45.909 Gluten enteropathy K90.41 Dyslipidemia E78.5 Depression F32.9 Anxiety disorder F41.9 Hypertension I10 Hyponatremia E87.1 Time Spent (min) 35
--- NOTE | 2022-06-27 14:29 | Electrocardiogram Report ---
Test Reason : Blood Pressure : / mmHG Vent. Rate : 066 BPM Atrial Rate : 066 BPM P-R Int : 172 ms QRS Dur : 084 ms QT Int : 404 ms P-R-T Axes : 036 -36 088 degrees QTc Int : 423 ms Poor data quality, interpretation may be adversely affected Normal sinus rhythm Left axis deviation Robert Septal infarct , age undetermined Abnormal ECG When compared with ECG of 26-JUN-2022 05:09, (unconfirmed) Robert Septal infarct is now Present Confirmed by Ever Dumont ([id number]) on 06/27/2022 2:29:06 PM Referred By: REFERRED SELF Confirmed By:Ever Dumont
== END 2022-06-27 13:33 | disposition home or self-care (01) | DRG 392 ==
LOC: ED 16:53 → 2W 21:03 → SUATTDRO 21:03 → 2W 22:25

== ENCOUNTER 2023-07-19 06:31 | Observation (INO) ==
--- NOTE | 2023-01-05 10:58 | PAT Medication Instructions ---
Medication Instructions Date of Service January 05, 2023 Home Medications Medication Instructions Recorded atorvastatin 40 mg tablet (Lipitor) 40 mg PO HS #90 tabs 07/15/20 diclofenac sodium 1 % topical gel 2 g topical QID #100 grams 10/28/21 baclofen 5 mg tablet 5 - 10 mg PO DAILY PRN pain #20 06/09/22 tabs verapamil 120 mg tablet,extended 120 mg PO QAM #90 tabs 07/30/22 release Contour Next Meter (blood-glucose #1 ea 09/17/22 meter) Contour Next Test Strips (blood #400 ea 09/17/22 sugar diagnostic) insulin lispro 100 unit/mL 65 unit (0.65 mL) subcut DAILY #20 09/18/22 subcutaneous solution (Humalog mL U-100 Insulin) insulin syringe-needle U-100 1 mL #100 ea 09/18/22 30 gauge x 1/2" (BD Insulin Syringe Ultra-Fine) lisinopril 40 mg tablet (Zestril) 40 mg PO QAM #30 tabs 12/18/22 metformin 500 mg tablet,extended 1,000 mg PO BID 30 days #120 tabs 12/18/22 release 24 hr cyanocobalamin (vitamin B-12) 500 mcg tablet 500 mcg PO QAM lisdexamfetamine 30 mg capsule (Vyvanse) 30 mg PO QAM lysine 500 mg tablet (L-Lysine) 500 mg PO QAM atorvastatin 40 mg tablet (Lipitor) 40 mg PO HS diclofenac sodium 1 % topical gel 2 g topical QID acetaminophen 500 mg tablet (Tylenol Extra Strength) 500 mg PO BID albuterol sulfate 90 mcg/actuation breath activated powder inhaler 1 inh inhalation QID PRN Wheezing ezetimibe 10 mg tablet 10 mg PO QAM baclofen 5 mg tablet 5 - 10 mg PO DAILY PRN pain verapamil 120 mg tablet,extended release 120 mg PO QAM insulin lispro 100 unit/mL subcutaneous solution (Humalog U-100 Insulin) 65 unit (0.65 mL) subcut DAILY fluoxetine 40 mg capsule 40 mg PO QAM pantoprazole 40 mg tablet,delayed release 40 mg PO QAM PRN reflux lisinopril 40 mg tablet (Zestril) 40 mg PO QAM metformin 500 mg tablet,extended release 24 hr 1,000 mg PO BID cholecalciferol (vitamin D3) 125 mcg (5,000 unit) tablet (Vitamin D3) 125 mcg PO QAM ASK your surgeon for instructions diclofenac sodium 1 % topical gel 2 g topical QID STOP taking 2 weeks before surgery lysine 500 mg tablet (L-Lysine) 500 mg PO QAM DO NOT take the morning of surgery cyanocobalamin (vitamin B-12) 500 mcg tablet 500 mcg PO QAM lisdexamfetamine 30 mg capsule (Vyvanse) 30 mg PO QAM lisinopril 40 mg tablet (Zestril) 40 mg PO QAM metformin 500 mg tablet,extended release 24 hr 1,000 mg PO BID cholecalciferol (vitamin D3) 125 mcg (5,000 unit) tablet (Vitamin D3) 125 mcg PO QAM Take morning of surgery With a small sip of water, OTHERWISE NOTHING TO EAT OR DRINK AFTER MIDNIGHT: acetaminophen 500 mg tablet (Tylenol Extra Strength) 500 mg PO BID albuterol sulfate 90 mcg/actuation breath activated powder inhaler 1 inh inhalation QID PRN Wheezing (use if needed; please bring with you to hospital day of surgery if possible) ezetimibe 10 mg tablet 10 mg PO QAM verapamil 120 mg tablet,extended release 120 mg PO QAM baclofen 5 mg tablet 5 - 10 mg PO DAILY PRN pain (if needed) fluoxetine 40 mg capsule 40 mg PO QAM pantoprazole 40 mg tablet,delayed release 40 mg PO QAM PRN reflux (if needed) Take evening before surgery atorvastatin 40 mg tablet (Lipitor) 40 mg PO HS acetaminophen 500 mg tablet (Tylenol Extra Strength) 500 mg PO BID albuterol sulfate 90 mcg/actuation breath activated powder inhaler 1 inh inhalation QID PRN Wheezing (if needed) baclofen 5 mg tablet 5 - 10 mg PO DAILY PRN pain (if needed) metformin 500 mg tablet,extended release 24 hr 1,000 mg PO BID Insulin Dependent Diabetic Patients insulin lispro 100 unit/mL subcutaneous solution (Humalog U-100 Insulin) 65 unit (0.65 mL) subcut DAILY (check with prescribing provider regarding insulin pump instructions (typically insulin pump set to basal rate after midnight prior to surgery with no boluses) Other Notes If you have any questions please call us at [phone] or [phone] or [phone] or [phone]
--- NOTE | 2023-01-11 11:57 | Anesthesiology Consultation ---
Date of Service January 11, 2023 Assessment & Plan (1) Encounter for pre-operative examination: Chart Review Chart Review: Acceptable Risk for Surgery (pending 01/14/23 allergy appt and surgeon's response re: elevated Hgb A1C ) and Patient seen in Pre Admission Testing - Awaiting allergy appt (01/14/23) ([place]) - Pending response from surgeon's office re: elevated Hgb A1C - Check BSG AM DOS - Pt is NOT an OPJ candidate due to age and comorbidities (currently 23 hour obs) Per PAT appt on 01/11/23, no recent illness/disease exposures, illness related symptoms, or recent illness/disease positive tests. Will leave to surgeon's discretion if preop Covid testing needed Teaching & Discussion Pre-Anesthesia Teaching/Discussion Notes: Instructed NPO after midnight before surgery,except medications with 15 cc of water. Medication instructions provided according to the PAT guidelines. History Surgery Operation Date: 02/15/23 10:15 Proposed Procedures p Right Total Knee Arthroplasty - Jericho Mccall, Height/Weight Height: 5 ft 1 in Weight: 74.7 kg Allergies Allergy/AdvReac Type Severity Reaction Status Date / Time aspirin Allergy Severe SWELLING, Verified 01/04/23 08:03 ANAPHYLACTIC RXN ibuprofen Allergy Severe SWELLING, Verified 01/04/23 08:03 ANAPHYLACTIC RXN NSAIDS (Non-Steroidal Allergy Severe anaphylaxis Verified 01/04/23 08:03 Anti-Inflamma geri Allergy Severe SOB Verified 01/04/23 08:03 Sulfa (Sulfonamide Allergy Severe Anaphylaxis Verified 01/04/23 08:03 Antibiotics) adhesive Allergy Intermediate rash Verified 01/04/23 08:03 gluten Allergy Intermediate ASTHMA Verified 01/04/23 08:03 peanut AdvReac Intermediate Flatulence Verified 01/04/23 08:03 Medications Home Medications Medication Instructions Recorded Confirmed Last Taken cyanocobalamin (vitamin B-12) 500 500 mcg PO QAM #100 tabs 12/03/18 01/04/23 06/25/22 mcg tablet lisdexamfetamine 30 mg capsule 30 mg PO QAM #24 caps 12/03/18 01/04/23 06/25/22 (Vyvanse) lysine 500 mg tablet (L-Lysine) 500 mg PO QAM 04/20/19 01/04/23 06/25/22 atorvastatin 40 mg tablet (Lipitor) 40 mg PO HS #90 tabs 07/15/20 01/04/23 06/24/22 diclofenac sodium 1 % topical gel 2 g topical QID #100 grams 10/28/21 01/04/23 06/25/22 12:00 acetaminophen 500 mg tablet 500 mg PO BID 04/27/22 01/04/23 06/25/22 08:00 (Tylenol Extra Strength) albuterol sulfate 90 mcg/actuation 1 inh inhalation QID PRN Wheezing 04/27/22 01/04/23 Unknown breath activated powder inhaler ezetimibe 10 mg tablet 10 mg PO QAM 04/27/22 01/04/23 06/25/22 baclofen 5 mg tablet 5 - 10 mg PO DAILY PRN pain #20 06/09/22 01/04/23 Unknown tabs verapamil 120 mg tablet,extended 120 mg PO QAM #90 tabs 07/30/22 01/04/23 Unknown release Contour Next Meter (blood-glucose #1 ea 09/17/22 12/18/22 Unknown meter) Contour Next Test Strips (blood #400 ea 09/17/22 12/18/22 Unknown sugar diagnostic) insulin lispro 100 unit/mL 65 unit (0.65 mL) subcut DAILY #20 09/18/22 01/04/23 Unknown subcutaneous solution (Humalog mL U-100 Insulin) insulin syringe-needle U-100 1 mL #100 ea 09/18/22 12/18/22 Unknown 30 gauge x 1/2" (BD Insulin Syringe Ultra-Fine) fluoxetine 40 mg capsule 40 mg PO QAM 10/19/22 01/04/23 Unknown pantoprazole 40 mg tablet,delayed 40 mg PO QAM PRN reflux 12/07/22 01/04/23 Unknown release lisinopril 40 mg tablet (Zestril) 40 mg PO QAM #30 tabs 12/18/22 01/04/23 Unknown metformin 500 mg tablet,extended 1,000 mg PO BID 30 days #120 tabs 12/18/22 01/04/23 Unknown release 24 hr cholecalciferol (vitamin D3) 125 125 mcg PO QAM 01/04/23 01/04/23 Unknown mcg (5,000 unit) tablet (Vitamin D3) Past Medical History Medical History (Updated 01/11/23 @ 16:10 by Suyapa Hill PA-C) Adult ADHD Anxiety disorder Asthma no res inh use for a long time "in remission" well controlled and stable Cardiac murmur No significant valve issues noted on 08/03/22 ECHO Follows with PCP Chronic upper back pain Depression Diabetic neuropathy Hands and feet Dyslipidemia Esophageal reflux disease well controlled and stable Gluten enteropathy Hearing difficulty No hearing aids needed at this time Hypertension Insulin pump in place Obesity Osteopenia Pulmonary nodules monitoring with PCP- stable per 12/[address] Skin cancer, basal cell pubic, removed Stress incontinence Type 2 diabetes mellitus, with long-term current use of insulin insulin pump Hgb A1C 9.0 with 01/11/23 preop labs Exercise / Class Metabolic Activity II 4-5 Yardwork/Stairs/Walk up hill (one flight of stairs - no chest pain or SOB ) Past Family History Family History Mother Myocardial infarction Breast cancer Sister Myocardial infarction Breast cancer Uterine cancer Father Myocardial infarction Grandmother Diabetes Grandfather Alcohol abuse Stroke syndrome Family/Other Myocardial infarction Other No family history of adverse response to anesthesia Denies family history of Colon cancer Ovarian cancer Prostate cancer Past Surgical History Surgical History H/O total hysterectomy History of cataract surgery bilat History of left knee replacement History of tonsillectomy and adenoidectomy History of tooth extraction Hx of hand surgery left little finger repaired after fall S/P appendectomy S/P cholecystectomy S/P emergency section X1 total Status post carpal tunnel release of both wrists Status post debridement of bone spur heels bilat Social History Smoking Status: Former smoker tobacco type: cigarettes Smoking cigarettes per day: quit 1985 Do You Dip or Chew Tobacco: No Hx Alcohol Use: No substance use type: does not use Review of Systems - Chronic cough - due to allergies- mild and stable Patient denies chest pain, shortness of breath, dyspnea on exertion, wheezing, palpitations. No hx of seizures, stroke, PR, apnea/snoring. No hx of blood clots or blood transfusions Physical Exam Vital Signs VITALS BP155/77 P 71 TEMP 98.3 SP02 95% RESP 16 Constitutional no acute distress ENMT Mouth: no TMJ clicking Thyromental Distance: > or= 3.5 Finger Breadths (3.5) Mallampati Class: I Mouth / Teeth: 1. Missing Neck + limited neck extension (mild) Respiratory normal respiratory effort; no respiratory distress Auscultation: lungs clear to auscultation bilaterally; no wheezes Cardiovascular Rate/Rhythm: regular rate and regular rhythm Heart Sounds: + murmur (II/ murmur) Vessels: no carotid bruit Musculoskeletal Spine: + pain with cervical ROM (mild) Extremities: extremities normal to inspection Psychiatric Orientation: alert Lab Results Anesthesia Preop Results Results Anesthesia Widget: WBC 8.58 K/ul (4.8-10.8) 01/11/23 Hgb 13.7 g/dl (12.0-16.0) 01/11/23 Hct 40.9 % (37.0-47.0) 01/11/23 Plt 175 K/uL (130-400) 01/11/23 Na 135 mmol/L (136-145) L 01/11/23 K 4.4 mmol/L (3.5-5.1) 01/11/23 Cl 103 mmol/L (98-107) 01/11/23 CO2 27 mmol/L (21-32) 01/11/23 BUN 27 mg/dl (6-23) H 01/11/23 Creat 0.76 mg/dl (0.6-1.2) 01/11/23 Glucose Level 220 mg/dl (70-99(Fasting)) H 01/11/23 PT 10.9 Seconds (9.0-12.0) 01/11/23 PTT 26.0 Seconds (21.0-31.0) 01/11/23 INR 1.0 (0.9-1.1) 01/11/23 HA1c 9.0 % (4.5-5.6) H 01/11/23 Blood Type A Negative 01/11/23 Antibody Screen NEGATIVE 01/11/23 Testing Laboratory Results Surgeon's office informed of elevated Hgb A1C - will leave to surgeon's discretion on how to proceed Electrocardiogram Date: 10/20/22 Findings: + NSR @ (65bpm ) Minimal voltage criteria for LVH, may be normal variant Nonspecific T wave abnormality Septal infarct (cited on or before June 27, 2022) When compared EKG from June 27, 2022no significant changes found (Poor R wave progression since at least 2019 on previous EKGs) Chest X-Ray Date: 10/20/22 FINDINGS: An AP, portable, upright chest radiograph is compared to study dated 06/25/2022 and correlated with chest CT dated 12/18/2021. The cardiomediastinal silhouette is top normal for projection noting atherosclerotic calcification of the thoracic aorta. Chronic interstitial thickening is similar to previous. There is mild bibasilar scarring/atelectasis. The lungs and pleural spaces are otherwise clear. No pneumothorax is seen. The skeletal structures are osteopenic. The bony thorax is grossly intact. IMPRESSION: No active disease in the chest. Echocardiogram Date: 08/03/22 EF: 65-70% LV Function: normal RWMA: + none Other Findings: + LVH (mild/concentric ) Compared with study of 06/26/22, no significant change was found
--- NOTE | 2023-06-15 11:39 | Anesthesiology Consultation ---
Date of Service June 15, 2023 Assessment & Plan (1) Encounter for pre-operative examination: Chart Review Chart Review: Acceptable Risk for Surgery (pending surgeon approval of patient proceeding from surgical standpoint due to diabetes) and Patient NOT seen in Pre Admission Testing Patient initially scheduled for procedure 02/15/23 (rescheduled due to closed fracture of distal end of left radius) - Check BSG AM DOS - Patient is NOT an OPJ candidate -Infectious Disease screening: Per PAT nursing assessment on 06/15/23. No known infectious disease contacts in past 10 days or current infectious disease sym ptoms. No recent travel outside the country. Seen by Diabetes Clinic 06/14/23= Type 2 diabetesglucose control poorvery important to improve given DKA scheduled 06/25/2023. Likely needs more basal coveragebasal 36 units daily when on pump). Increase Tresiba (basal) from 20 to 24 units/day. Slow increase due to occasional FS readings in 90ssuspect more from Humalog but not 100% sure. Advised can take Tresiba and Humalog together, will now take Humalog for breakfast. Advised prebolusing 15 minutes before meals. Follow-up in 1 week. Patient interested in GLP-1cannot start until after TKA. Seen by allergy 01/25/23= "We performed a graded challenge to aspirin today, which was negative... Given negative challenge, it would be safe for her to use 81 mg aspirin daily. We also discussed today that NSAID reactions can occur across a variety of mechanisms. In patients with IgE mediated allergies, they are usually able to tolerate other NSAID family members without any problems as each NSAID is distinct chemically. In other cases, patients may have an idiosyncratic reaction to NSAIDs where all NSAIDs can trigger symptoms, though there might be a dose-dependent effect where higher doses are needed to trigger symptoms. If she needs a different NSAID for pain control, I recommend Celebrex. Celebrex would be safe in someone with an IgE mediated reaction to an NSAID as well as patients who have an idiosyncratic reaction to nonselective GONSALEZ inhibitors. If she had a need for different NSAIDs in the future, we could perform testing. We did discuss that patients can lose the drug allergy over time and there is a chance that even the Motrin would be safe to use." History Surgery Operation Date: 06/25/23 07:00 Proposed Procedures p Right Total Knee Arthroplasty - Jericho Mccall, Height/Weight Height: 5 ft 1 in Weight: 75.75 kg Allergies Allergy/AdvReac Type Severity Reaction Status Date / Time aspirin Allergy Severe SWELLING, Verified 06/15/23 09:43 ANAPHYLACTIC RXN ibuprofen Allergy Severe motrin - Verified 06/15/23 09:43 SWELLING, ANAPHYLACTIC RXN NSAIDS (Non-Steroidal Allergy Severe anaphylaxis Verified 06/15/23 09:43 Anti-Inflamma - motrin geri Allergy Severe SOB Verified 06/15/23 09:15 Sulfa (Sulfonamide Allergy Severe Anaphylaxis Verified 06/15/23 09:15 Antibiotics) adhesive Allergy Intermediate rash Verified 06/15/23 09:15 gluten Allergy Intermediate ASTHMA Verified 06/15/23 09:15 peanut AdvReac Intermediate Flatulence Verified 06/15/23 09:15 Medications Home Medications Medication Instructions Recorded Confirmed Last Taken lisdexamfetamine 30 mg capsule 30 mg PO QAM #24 caps 12/03/18 06/15/23 06/25/22 (Vyvanse) diclofenac sodium 1 % topical gel 2 g topical QID #100 grams 10/28/21 06/15/23 06/25/22 12:00 acetaminophen 500 mg tablet 500 mg PO BID PRN Pain 04/27/22 06/15/23 06/25/22 08:00 (Tylenol Extra Strength) Contour Next Meter (blood-glucose #1 ea 09/17/22 06/14/23 Unknown meter) Contour Next Test Strips (blood #400 ea 09/17/22 06/14/23 Unknown sugar diagnostic) pantoprazole 40 mg tablet,delayed 40 mg PO QAM PRN reflux 12/07/22 06/15/23 Unknown release lisinopril 40 mg tablet (Zestril) 40 mg PO QAM #30 tabs 12/18/22 06/15/23 Unknown metformin 500 mg tablet,extended 1,000 mg (2 x 500 mg) PO BID 30 12/18/22 06/15/23 Unknown release 24 hr days #120 tabs verapamil 120 mg tablet,extended 120 mg PO QAM #90 tabs 02/05/23 06/15/23 Unknown release lancets (Microlet Lancet) #200 ea 03/08/23 06/14/23 Unknown pen needle, diabetic 32 gauge x #200 ea 03/08/23 06/14/23 Unknown /32" (BD Ultra-Fine Laurita Pen Needle) insulin lispro 100 unit/mL See Rx Instructions subcut TID #10 03/10/23 06/15/23 Unknown subcutaneous solution (Humalog mL U-100 Insulin) baclofen 5 mg tablet 5 - 10 mg (1 - 2 x 5 mg) PO DAILY 04/01/23 06/15/23 Unknown PRN pain #20 tabs insulin syringe-needle U-100 1 mL #100 ea 05/07/23 06/14/23 Unknown 30 gauge x 1/2" (BD Insulin Syringe Ultra-Fine) fluoxetine 40 mg capsule 40 mg PO QAM #90 caps 05/26/23 06/15/23 Unknown insulin degludec 100 unit/mL (3 20 unit subcut QAM 06/15/23 06/15/23 Unknown mL) subcutaneous pen (Tresiba FlexTouch U-100 insulin) multivitamin-ferrous 1 tab PO QAM 06/15/23 06/15/23 Unknown fumarate-folic acid 18 mg-400 mcg tablet Past Medical History Medical History (Updated 06/15/23 @ 13:53 by Suyapa Hill PA-C) Adult ADHD Anxiety disorder Asthma no res inh use for a long time "in remission" well controlled and stable Cardiac murmur No significant valve issues noted on 08/03/22 ECHO Follows with PCP Chronic upper back pain Depression Diabetic neuropathy Hands and feet Dyslipidemia Esophageal reflux disease well controlled and stable Gluten enteropathy Hearing difficulty No hearing aids needed at this time Hypertension Obesity Osteopenia Pulmonary nodules monitoring with PCP- stable per 12/[address] Skin cancer, basal cell pubic, removed Stress incontinence Type 2 diabetes mellitus, with long-term current use of insulin Hgb A1C 9.5 with 05/2023 preop labs Past Family History Family History Mother Myocardial infarction Breast cancer Sister Myocardial infarction Breast cancer Uterine cancer Father Myocardial infarction Grandmother Diabetes Grandfather Alcohol abuse Stroke syndrome Family/Other Myocardial infarction Other No family history of adverse response to anesthesia Denies family history of Colon cancer Ovarian cancer Prostate cancer Past Surgical History Surgical History H/O total hysterectomy History of cataract surgery bilat History of left knee replacement History of tonsillectomy and adenoidectomy History of tooth extraction Hx of hand surgery left little finger repaired after fall S/P appendectomy S/P cholecystectomy S/P emergency section X1 total Status post carpal tunnel release of both wrists Status post debridement of bone spur heels bilat Social History Smoking Status: Former smoker tobacco type: cigarettes Smoking cigarettes per day: quit 1985 Do You Dip or Chew Tobacco: No Hx Alcohol Use: No Hx Substance Use: No substance use type: does not use Lab Results Anesthesia Preop Results Results Anesthesia Widget: WBC 7.49 K/ul (4.8-10.8) 06/02/23 Hgb 13.8 g/dl (12.0-16.0) 06/02/23 Hct 40.4 % (37.0-47.0) 06/02/23 Plt 193 K/uL (130-400) 06/02/23 Na 135 mmol/L (136-145) L 06/02/23 K 4.2 mmol/L (3.5-5.1) 06/02/23 Cl 102 mmol/L (98-107) 06/02/23 CO2 27 mmol/L (21-32) 06/02/23 BUN 23 mg/dl (6-23) 06/02/23 Creat 0.85 mg/dl (0.6-1.2) 06/02/23 Glucose Level 306 mg/dl (70-99(Fasting)) H* 06/02/23 PT 10.9 Seconds (9.0-12.0) 06/02/23 PTT 28 Seconds (21-31) 06/02/23 INR 1.0 (0.9-1.1) 06/02/23 HA1c 9.5 % (4.5-5.6) H 06/02/23 Blood Type A Negative 06/02/23 Antibody Screen NEGATIVE 06/02/23 Testing Laboratory Results Discussed with Dr. Rodriguez- surgeon's office informed of elevated Hgb A1C - will leave to surgeon's discretion on how to proceed Electrocardiogram Date: 10/20/22 Findings: + NSR @ (65bpm ) Minimal voltage criteria for LVH, may be normal variant Nonspecific T wave abnormality Septal infarct (cited on or before June 27, 2022) When compared EKG from June 27, 2022no significant changes found (Poor R wave progression since at least 2019 on previous EKGs) Chest X-Ray Date: 01/29/23 RIBS WITH CXR No acute process of the chest. No acute displaced rib fracture or pneumothorax identified. CXR 10/20/22= FINDINGS: An AP, portable, upright chest radiograph is compared to study dated 06/25/2022 and correlated with chest CT dated 12/18/2021. The cardiomediastinal silhouette is top normal for projection noting atherosclerotic calcification of the thoracic aorta. Chronic interstitial thickening is similar to previous. There is mild bibasilar scarring/atelectasis. The lungs and pleural spaces are otherwise clear. No pneumothorax is seen. The skeletal structures are osteopenic. The bony thorax is grossly intact. IMPRESSION: No active disease in the chest. Echocardiogram Date: 08/03/22 EF: 65-70% LV Function: normal RWMA: + none Other Findings: + LVH (mild/concentric ) Compared with study of 06/26/22, no significant change was found
--- NOTE | 2023-07-15 12:48 | History & Physical Report ---
Date of Service July 15, 2023 Assessment & Plan (1) Right knee DJD: We will proceed with a right total knee arthroplasty. Postoperatively she will be started on aspirin for DVT prophylaxis and kept overnight in the hospital for postop medical management. She plans to [facility] upon discharge. History of Present Illness Chief Complaint: Osteoarthritis of the right knee. Primary Care Provider: Swetha Bryant MD Trinh is a pleasant 77-year-old female who has been dealing with chronic worsening right knee pain. X-rays and clinical examination have been diagnostic for advanced arthritis to the right knee. After failing extensive conservative treatment, she has elected to proceed with a right total knee arthroplasty. She does have a history of a left knee replacement done by Dr. Salcedo in the past. . Allergies Allergy/AdvReac Type Severity Reaction Status Date / Time aspirin Allergy Severe SWELLING, Verified 07/09/23 08:49 ANAPHYLACTIC RXN ibuprofen Allergy Severe motrin - Verified 07/09/23 08:49 SWELLING, ANAPHYLACTIC RXN NSAIDS (Non-Steroidal Allergy Severe anaphylaxis Verified 07/09/23 08:49 Anti-Inflamma - motrin geri Allergy Severe SOB Verified 07/09/23 08:49 Sulfa (Sulfonamide Allergy Severe Anaphylaxis Verified 07/09/23 08:49 Antibiotics) adhesive Allergy Intermediate rash Verified 07/09/23 08:49 gluten Allergy Intermediate ASTHMA Verified 07/09/23 08:49 peanut AdvReac Intermediate Flatulence Verified 07/09/23 08:49 Home Medications Medication Instructions Recorded Confirmed Type lisdexamfetamine 30 mg capsule 30 mg PO QAM #24 caps 12/03/18 07/09/23 History (Vyvanse) diclofenac sodium 1 % topical gel 2 g topical QID #100 grams 10/28/21 07/09/23 Rx acetaminophen 500 mg tablet 500 mg PO BID PRN Pain 04/27/22 07/09/23 History (Tylenol Extra Strength) Contour Next Meter (blood-glucose #1 ea 09/17/22 07/09/23 Rx meter) Contour Next Test Strips (blood #400 ea 09/17/22 07/09/23 Rx sugar diagnostic) pantoprazole 40 mg tablet,delayed 40 mg PO QAM PRN reflux 12/07/22 07/09/23 History release lisinopril 40 mg tablet (Zestril) 40 mg PO QAM #30 tabs 12/18/22 07/09/23 Rx metformin 500 mg tablet,extended 1,000 mg (2 x 500 mg) PO BID 30 12/18/22 07/09/23 Rx release 24 hr days #120 tabs verapamil 120 mg tablet,extended 120 mg PO QAM #90 tabs 02/05/23 07/09/23 Rx release lancets (Microlet Lancet) #200 ea 03/08/23 07/09/23 Rx insulin lispro 100 unit/mL See Rx Instructions subcut TID #10 03/10/23 07/09/23 Rx subcutaneous solution (Humalog mL U-100 Insulin) baclofen 5 mg tablet 5 - 10 mg (1 - 2 x 5 mg) PO DAILY 04/01/23 07/09/23 Rx PRN pain #20 tabs insulin syringe-needle U-100 1 mL #100 ea 05/07/23 07/09/23 Rx 30 gauge x 1/2" (BD Insulin Syringe Ultra-Fine) fluoxetine 40 mg capsule 40 mg PO QAM #90 caps 05/26/23 07/09/23 Rx insulin degludec 100 unit/mL (3 20 unit subcut QAM 06/15/23 07/09/23 History mL) subcutaneous pen (Tresiba FlexTouch U-100 insulin) multivitamin-ferrous 1 tab PO QAM 06/15/23 07/09/23 History fumarate-folic acid 18 mg-400 mcg tablet pen needle, diabetic 32 gauge x #400 ea 07/05/23 07/09/23 Rx 5/32" (BD Ultra-Fine Laurita Pen Needle) Past Med/Surg History Medical History Stress incontinence Diabetic neuropathy Hands and feet Cardiac murmur No significant valve issues noted on 08/03/22 ECHO Follows with PCP Hypertension Pulmonary nodules monitoring with PCP- stable per 12/[address] Skin cancer, basal cell pubic, removed Type 2 diabetes mellitus, with long-term current use of insulin Hgb A1C 9.5 with 05/2023 preop labs Osteopenia Obesity Hearing difficulty No hearing aids needed at this time Gluten enteropathy Esophageal reflux disease well controlled and stable Dyslipidemia Depression Chronic upper back pain Anxiety disorder Adult ADHD Asthma no res inh use for a long time "in remission" well controlled and stable Surgical History H/O total hysterectomy History of tonsillectomy and adenoidectomy History of tooth extraction History of cataract surgery bilat Hx of hand surgery left little finger repaired after fall S/P appendectomy S/P cholecystectomy S/P emergency section X1 total Status post debridement of bone spur heels bilat Status post carpal tunnel release of both wrists History of left knee replacement Family History Mother Myocardial infarction Breast cancer Sister Myocardial infarction Breast cancer Uterine cancer Father Myocardial infarction Grandmother Diabetes Grandfather Alcohol abuse Stroke syndrome Family/Other Myocardial infarction Other No family history of adverse response to anesthesia Denies family history of Colon cancer Ovarian cancer Prostate cancer Social History Smoking Status: Former smoker Tobacco Type: Cigarettes Age Started Using Tobacco: 14; Age Quit Using Tobacco: 39; packs per day: 1; Cigarettes Per Day: quit 1984; Second Hand Exposure: Yes (mother smoked); Do You Dip or Chew Tobacco: No; Hx Alcohol Use: No Hx Substance Use: No Preferred Language: Gabonese Communication Ability: Effective Visual Impairment: No Limitations Hearing Ability: Normal Purchase Request Editor Required: No Beliefs That Will Affect Care: None marital status: / Current Living Situation: Alone current occupational status: retired 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 Physical Exam On physical examination the right knee, she has decreased range of motion. She has slight varus deformity. She has tenderness palpation of the distal medial femoral condyle and over the medial joint line.. Constitutional WD/WN, vitals as above Eyes PERRL, conjunctivae normal, anicteric sclerae ENMT external ear and nose normal, oropharynx normal Neck trachea midline, no thyromegaly Respiratory normal respiratory effort Cardiovascular RRR, no murmur, no edema Gastrointestinal (Abdomen) normal bowel sounds, soft, nontender, no hepatosplenomegaly Psychiatric A+Ox3, euthymic affect Results & Data Results & Data Laboratory Results . Diagnostic Findings X-rays of the right knee show advanced osteoarthritis with joint space narrowing, osteophyte formation, and [id number] tubulation. PG Care Time/CCT Total # of Minutes Spent Total Time Spent with Patient: Total time spent is greater than 50% in coordination of care (as documented) at patient's floor/unit and/or counseling patient: Coding Level of Care Code None Diagnoses Right knee DJD M17.11
[~2023-07-19 06:31] MED LIST changes: -ACET-1311 PO; -ADVIN50050 INH; -ALBUAER2 INH; +ALLERGY Noted to ORDERED Medication SCH; +BUPIVACAINE 0.25% PF 30 ML VIAL ONE; +BUPIVACAINE 0.5 % 5 MG/1 ML PF 10ML VIAL ONE; -CETI10TA84 PO; -FLUO20CA35 PO; -GLC500 PO; -INSPMPHMLG; -LISD40CA PO; -LISI1TAB3 PO; -ZCRT/40 PO
--- NOTE | 2023-07-19 06:43 | History & Physical Bridge Note ---
Date of Service July 19, 2023 History & Physical Bridge Note I have examined the patient, reviewed the History & Physical and in the interval since the performance of the History & Physical I have noted the following changes of clinical significance: no changes noted
[2023-07-19] MEDS ORDERED: ONDANSETRON INJ 2 MG/ML 2 ML VIAL ONE (07:03)
[2023-07-19] MEDS ORDERED: LIDOCAINE 2% 2 ML VIAL/AMP(20MG/ML) INFIL ONE (07:03)
[2023-07-19] MEDS ORDERED: PROPOFOL IV EMULSION 10 MG/ML 20 ML VIAL IV ONE (07:03)
[2023-07-19] MEDS ORDERED: DEXAMETHASONE SOD INJ 4 MG/ML VIAL ONE (07:03)
[2023-07-19] MEDS ORDERED: MIDAZOLAM HCL 1 MG/ML 2ML VIAL ONE (07:03)
[2023-07-19] MEDS ORDERED: fentaNYL citrate PF 100 MCG/2 ML VIAL ONE (07:03)
[2023-07-19] MEDS: ACETAMINOPHEN 500 MG TAB PO SCH ×2 (07:08→14:22)
[2023-07-19] MEDS: GABAPENTIN 300 MG CAP PO SCH (07:09)
[2023-07-19] MEDS: FAMOTIDINE 20 MG TAB PO SCH (07:09)
[2023-07-19] MEDS: dexAMETHasone**PF** 10 MG/ML VIAL IV SCH (07:20)
[2023-07-19] MEDS: LR 500ML BOLUS, THEN 15ML/HR IV SCH (07:20)
[2023-07-19] MEDS ORDERED: ONDANSETRON INJ 2 MG/ML 2 ML VIAL IV PRN ×2 (07:53→12:59)
[2023-07-19] MEDS ORDERED: fentaNYL citrate PF 100 MCG/2 ML VIAL IV PRN (07:53)
[2023-07-19] MEDS ORDERED: ATROPINE SULFATE 0.1 MG/ML 10ML SYR IV PRN (07:53)
[2023-07-19] MEDS ORDERED: ePHEDrine sulfate 50 MG/ML AMP IV PRN (07:53)
[2023-07-19] MEDS ORDERED: Nursing to Pharmacy Communication SCH ×2 (08:00→14:15)
[2023-07-19] MEDS: TRANEXAMIC ACID 1,000 MG **IV Pre-op IV SCH (08:21)
[2023-07-19] MEDS: ceFAZolin 2000MG 2,000 MG/15 ML SYR IV SCH (08:36)
[2023-07-19] MEDS: TRANEXAMIC ACID 1,000 MG **IV Intra-op IV SCH (09:45)
[2023-07-19] MEDS: ROPIVACAINE 0.5% HCL/PF 246 MG, EPINEPHrine 30MG/30ML (OR USE) 0.5 MG in SODIUM CHLORID... INFIL SCH (09:50)
--- NOTE | 2023-07-19 09:51 | Operative Report ---
PG Post Operative Report Pre & Post Diagnosis Operation Date: 07/19/23 08:00 Pre-Op Diagnosis: Degenerative Joint Disease Right Knee Post-Op Diagnosis: Degenerative Joint Disease Right Knee I identified the patient and participated in the time-out.: Yes Procedure Operation Date: 07/19/23 08:00 Actual Procedures p Right Total Knee Arthroplasty(Right) - Jericho Mccall DO Surgeon Jericho Mccall DO Corporate Events Director Clarence Sosa PA-C Estimated Blood Loss 5 Findings Consistent with Post-Op Diagnosis Specimens Right femoral and tibial bone Description of Procedure Implants used: I used a Alfie Persona total knee arthroplasty system with a size 5 standard PS femur, C tibia, 31 oval patella, and a size 12 CPS polyethylene bearing. All components were cemented in place with Biomet cement. Trinh arrived [facility] for the above procedure. She was seen in the preoperative holding area and the operative extremity was identified and signed. She was given a preoperative antibiotic, TXA, a spinal anesthetic and an adductor nerve block. She was taken back to the operating room and laid on the table in supine position. She was given basic sedation. The operative knee was then prepped and draped in sterile fashion. A timeout was done, and the patient and the operative extremity was properly identified. A midline incision was made directly over the patella. Dissection was taken down to the extensor mechanism. A subvastus arthrotomy was used. The medial retinaculum was released and the fat pad was mostly excised. The knee was flexed and the ACL, PCL, and meniscus were removed. A drill was sent down the center of the femoral canal followed by an intramedullary mike. Off that mike a distal femoral cutting block was placed. 9 mm was resected off the distal femur at 5 of valgus. A posterior referencing AP sizing guide was then placed on the distal femur. The femur measured to be a size 5. 2 drill holes were placed in 3 of external rotation. A 4-in-1 cutting block was then impacted into place. Anterior, posterior, and chamfer cuts were then made. The proximal tibia was then exposed. An external tibial alignment guide was placed. A tibial cut guide was then anchored in place and the proximal tibia was then resected. The posterior aspect of the knee was then ope faiza up and any additional meniscus fragments and osteophytes were removed. The tibia measured to be a size C. The tibial plate was then placed in the appropriate rotation and the tibia was drilled and punched. Trial components were then placed. I used a size 12 CPS polyethylene insert. The knee was brought through a full range of motion and felt to be stable. The peg holes for the femoral component were then drilled. The patella was then everted and 9 mm was resected off the posterior aspect of the patella. The patella measured to be a size 31 oval. 3 peg holes were then drilled. A trial patella was placed. The knee was once again brought through a full range of motion and felt to be stable. Trial components were then removed. The surrounding soft tissues were injected with 100 cc of an orthopedic pain control cocktail. All components were then cemented into place with Biomet cement. The final polyethylene insert was then snapped into place. Once cement was dry the tourniquet was deflated. Hemostasis was obtained. A dilute betadyne lavage was then done for 3 minutes. The joint was then irrigated with normal saline solution. The subvastus arthrotomy was then closed with #1 Vicryl suture. The skin was closed with 2-0 Vicryl, 3-0V lock suture, and aydee. A soft compressive dressing was placed. She was then transferred to a hospital bed and taken to the postanesthesia care unit in stable condition. She tolerated the procedure well. Clarence Sosa PA-C, was present for the entire procedure. He was critical for patient positioning, prepping, draping, retraction exposure, wound closure and application of sterile dressing. I attest to the content of the Intraoperative Record and any orders documented therein. Any exceptions are noted below.
--- NOTE | 2023-07-19 11:04 | XRay Report ---
XR knee RT 1 or 2V routine CLINICAL HISTORY: Postoperative evaluation. COMPARISON: Right knee radiographs December 09, 2022. FINDINGS: Alignment of the total right knee arthroplasty is anatomic. There is no periprosthetic fra cture or unexpected radiopaque foreign body. There are skin aydee. IMPRESSION: Expected findings following total right knee arthroplasty. ACT 112: Negative or not required by law. Electronically signed by: Ermias Spring M.D. 07/19/2023 11:03 AM
--- NOTE | 2023-07-19 12:40 | Anesthesiology Progress Note ---
Date of Service July 19, 2023 Anesthesia Post Procedure Vital Signs Vital Signs: Temp Pulse Pulse Resp BP Pulse Ox O2 Del Method 07/19/23 12:25 71 17 132/84 96 Nasal Cannula 07/19/23 12:10 72 23 107/68 98 Nasal Cannula 07/19/23 12:00 37 C 80 19 136/67 96 Nasal Cannula 07/19/23 11:50 69 12 108/57 L 96 Nasal Cannula 07/19/23 11:40 69 17 114/49 L 96 Nasal Cannula 07/19/23 11:30 72 19 108/60 94 Nasal Cannula 07/19/23 11:20 71 17 113/53 L 95 Nasal Cannula 07/19/23 11:10 69 13 105/66 95 Nasal Cannula 07/19/23 11:00 68 15 117/63 96 Nasal Cannula 07/19/23 10:50 69 20 113/47 L 96 Nasal Cannula 07/19/23 10:40 69 20 110/41 L 97 Nasal Cannula 07/19/23 10:30 73 15 135/57 L 92 Room Air 07/19/23 10:20 73 14 125/59 L 92 Room Air 07/19/23 10:12 36.0 C L 76 13 111/62 95 Oxymask 07/19/23 06:57 36.5 C 77 20 142/74 H 97 Room Air O2 Flow Rate 07/19/23 12:25 2 07/19/23 12:10 2 07/19/23 12:00 2 07/19/23 11:50 2 07/19/23 11:40 2 07/19/23 11:30 2 07/19/23 11:20 2 07/19/23 11:10 2 07/19/23 11:00 2 07/19/23 10:50 2 07/19/23 10:40 2 07/19/23 10:30 07/19/23 10:20 07/19/23 10:12 7 07/19/23 06:57 Pain Intensity Right Knee: Pain Intensity: 5 Transfer of Care Handoff Completed per policy Notes Mental Status: alert / awake / arousable Patient Amnestic to Procedure: Yes Nausea / Vomiting: adequately controlled Pain: adequately controlled Airway Patency, RR, SpO2: stable & adequate BP & HR: stable & adequate Hydration State: stable & adequate Neuraxial Anesthesia: was administered and sensory block is resolving Anesthetic Complications: no major complications apparent and Pt Satisfied with anesthetic care
[2023-07-19] MEDS ORDERED: PANTOprazole 40 MG TAB PO PRN (12:59)
[2023-07-19] MEDS ORDERED: KETOROLAC TROMETHAMINE 15 MG/ML VIAL IV SCH (12:59)
[2023-07-19] MEDS ORDERED: bisacodyL 10 MG SUPP PR PRN (12:59)
[2023-07-19] MEDS ORDERED: HYDROmorphone INJ 0.5 MG/0.5 ML SYR IV PRN (12:59)
[2023-07-19] MEDS ORDERED: METOCLOPRAMIDE HCL INJ 5 MG/ML 2 ML VIAL IV PRN (12:59)
[2023-07-19] MEDS ORDERED: PHARMACY GLYCEMIC MGMT CONSULT PRN (12:59)
[2023-07-19] MEDS ORDERED: NALOXONE HCL 0.4 MG/1 ML VIAL/CARP IV PRN (12:59)
[2023-07-19] MEDS ORDERED: MAGNESIUM HYDROXIDE SUSP 30 ML UDC PO PRN (12:59)
[2023-07-19] MEDS: LR 60ML/HR IV SCH (13:35)
--- NOTE | 2023-07-19 13:46 | Pharmacy Report ---
Pharmacy Glycemic Short Note 2 - Date of Service July 19, 2023 - Glycemic Short BSG Results (Last 24 hours): 07/19/23 07/19/23 07/19/23 07:25 10:59 13:09 POC Glucose 180 H 213 H 203 H OUTPATIENT ANTIDIABETIC REGIMEN: * Tresiba 20 units SC qAM * Humalog 5 units TIDM plus sliding scale * Metformin 1 g po BID * HbA1c 9.5% on 06/02/23 ASSESSMENT: * 78 yo F w T2DM POD 0. Dexamethasone 10 mg IV administered preop. 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 Will give an additional 15 units Lantus now. Higher dose indicated as compared to home 2nd steroids. * Will start with weight-based severe stress estimate Novolog due to steroids PLAN FOR INPATIENT GLYCEMIC CONTROL: * Hold outpatient oral diabetes medications * Basal insulin * Lantus 15 units SQ now. Ongoing dependent on BSG's. * Bolus insulin * NovoLog per scale ACHS or Q6hrs while NPO * Goal Range: Low 110 mg/dL - High 140 mg/dL * Correction Factor: 20 mg/dL/unit * Nutritional / Prandial insulin per carb ratio of 1 unit per 7 grams CHO consumed
[2023-07-19] MEDS ORDERED: NON-FORMULARY MEDICATION (Insulin Lispro [Humalog U-100 Insulin] 100 unit/mL solution) SQ SCH (14:00)
[2023-07-19] MEDS: LANTUS PER UNIT CHARGE SC ONE (14:06)
[2023-07-19] MEDS: SODIUM CHLORIDE 0.9% 1,000 ML IV SCH (14:22)
[2023-07-19] MEDS: INSULIN ASPART PER UNIT CHARGE SC SCH ×2 (14:26→21:50)
[2023-07-19] MEDS: INSULIN ASPART PER UNIT CHARGE ONE (14:29)
[2023-07-19] MEDS ORDERED: INSULIN ASPART PER UNIT CHARGE SC STA (14:53)
[2023-07-19] MEDS: ceFAZolin 1000MG 1,000 MG/7.5 ML SYR IV SCH (16:02)
[2023-07-19] MEDS: INSULIN ASPART PER UNIT CHARGE SC ONE (16:55)
[2023-07-19] MEDS: traMADol HCL 50 MG TABLET PO PRN (20:22)
[2023-07-19] MEDS: ASPIRIN 81 MG ECTAB PO SCH (20:23)
[2023-07-19] MEDS: DOCUSATE SODIUM 100 MG CAP PO SCH (20:24)
[2023-07-19] MEDS: SENNA 8.6 MG TAB PO SCH (20:24)
[2023-07-19] MEDS ORDERED: metFORMIN HCL ER 500 MG TABCR PO SCH (21:00)
[2023-07-20] MEDS: oxyCODONE HCL IR 5 MG TAB (IMMEDIATE RELEASE) PO PRN (00:41)
[2023-07-20] MEDS: INSULIN ASPART PER UNIT CHARGE SC ONE (02:52)
[2023-07-20] MEDS: VERAPAMIL HCL 120 MG TABCR PO SCH (08:17)
[2023-07-20] MEDS: FLUoxetine HCL 20 MG CAP PO SCH (08:17)
[2023-07-20] MEDS: MULTIVITAMIN TAB PO SCH (08:18)
[2023-07-20] MEDS: lisinopril 40 MG TAB PO SCH (08:18)
[2023-07-20] MEDS: LANTUS PER UNIT CHARGE SC SCH (08:42)
[2023-07-20] MEDS ORDERED: NON-FORMULARY MEDICATION (Insulin Degludec [Tresiba Flextouch U-100] 100 unit/mL (3 mL) in SQ SCH (09:00)
--- NOTE | 2023-07-20 12:06 | Orthopedic Progress Note ---
Date of Service July 20, 2023 Assessment & Plan (1) Status post right knee replacement: Overall, she is doing quite well today with good pain control to the right knee. She will work with physical therapy today to work on ambulation and range of motion exercises. She is currently on aspirin for DVT prophylaxis. She did discuss this with Dr. Mccall that she was formally tested and does not truly have an allergy to aspirin. Dr. Mccall would like her to be on aspirin for DVT prophylaxis upon discharge as well. She will be discharged later this morning pending physical therapy evaluation. She would like to go to [facility] for rehabilitation upon discharge. Case management on board. Anticipated discharge is this afternoon once formal approval was received. She will follow- up with orthopedics in 2 weeks for postoperative management. Shanda Tsang was seen and evaluated this morning resting comfortably at bedside in no apparent distress. She notes that her pain is well-controlled to the right knee. She is about to work with physical therapy upon my arrival. She has been up and out of bed without any significant issues. She denies any other concerns today. Review of Systems All systems reviewed & are unremarkable except as noted in HPI & below. Physical Exam . On physical examination of the right knee, dressings are clean, dry, intact. Her leg is out in full extension. She has active plantarflexion dorsiflexion of the right ankle. +2 DP and PT pulses. Less than 2-second capillary refill. Normal sensation. Neurovascular intact. Results & Data Results & Data Laboratory Results . Diagnostic Findings . Postoperative x-rays of the right knee show prosthesis to be anatomical alignment with no signs of fracture complication or loosening. PG Care Time/CCT Total # of Minutes Spent Total Time Spent with Patient: Total time spent is greater than 50% in coordination of care (as documented) at patient's floor/unit and/or counseling patient: Coding Level of Care Code 72058 Post Operative Follow-Up Diagnoses Status post right knee replacement Z96.651
--- NOTE | 2023-07-20 13:29 | Discharge Summary ---
Date of Service July 20, 2023 Admission HPI (Per Admitting) Trinh is a pleasant 77-year-old female who has been dealing with chronic worsening right knee pain. X-rays and clinical examination have been diagnostic for advanced arthritis to the right knee. After failing extensive conservative treatment, she has elected to proceed with a right total knee arthroplasty. She does have a history of a left knee replacement done by Dr. Salcedo in the past. . Admission Exam (Per Admitting) On physical examination the right knee, she has decreased range of motion. She has slight varus deformity. She has tenderness palpation of the distal medial femoral condyle and over the medial joint line.. Principal Diagnosis Same as "Discharge Diagnosis" noted below under Discharge Instructions. Discharge Exam . On physical examination of the right knee, dressings are clean, dry, intact. Her leg is out in full extension. She has active plantarflexion dorsiflexion of the right ankle. +2 DP and PT pulses. Less than 2-second capillary refill. Normal sensation. Neurovascular intact. Discharge Data Procedures Performed Operation Date: 07/19/23 08:00 Actual Procedures p Right Total Knee Arthroplasty(Right) - Jericho Mccall DO Ordered Studies 07/19/23 05:00 US - OR guided needle placemen Routine Hospital Course (1) Status post right knee replacement: On July 19, 2023 Trinh arrived at [facility] and underwent a right total knee arthroplasty performed by Dr. Mccall with no complications. She had a spinal anesthetic. Postoperatively, she was started on aspirin for DVT prophylaxis and transferred to the general orthopedic floor in stable condition. Her hospital course was uneventful. On postoperative day #1, her vital signs were stable and her pain was well-controlled. She participated well with physical therapy working on ambulation and range of motion exercises. She did note that she wanted to go to a rehabilitation hospital upon discharge. A bed was available at [facility]. She was discharged to [facility] in stable condition. She will follow-up with orthopedics in 2 weeks for postoperative management. PG Care Time/CCT Total # of Minutes Spent Total Time Spent with Patient: Total time spent is greater than 50% in coordination of care (as documented) at patient's floor/unit and/or counseling patient: Discharge Plan Discharge Items Patient Disposition: Home - Home Health Services Reason For Visit: DJD Right Knee Discharge Diagnosis: Same Activity: Per Instructions section Non-emergency contact: Surgeon Call non-emergency contact if: your temperature is above 101.5, your wound has increased redness, your wound has increased drainage and your wound pain has increased Follow-up/Referrals: Swetha Bryant MD [Primary Care Provider] - Diet: Regular Addtl Attending Provider Instructions: Activity and Therapy Recommendations: * If you are using [facility] then therapy will be provided at your home until they feel you have accomplished all of your goals. * If you are using [facility] then Physical Therapy will be provided until they feel you are ready to start Outpatient Physical Therapy. * If you are not using home therapy then Outpatient Physical Therapy should start about 3-5 days from your day of surgery. Therapy will last about 6-10 weeks * It is important not to put a pillow under your knee when you are relaxing or sleeping. It is just as important to make sure you are getting your knee perfectly straight as it is to regain your knee bend. * You were shown a series of exercises in the hospital. Do these exercises three times each day including the exercises you were shown in physical therapy. * Get up and walk several times each day. For the first four weeks, try not to stand or walk for more than one hour at a time. If you do stand or walk for more than one hour, you will not hurt anything, but your leg will likely swell. * As you feel comfortable, you may change from the walker or crutches to a cane and then to independent walking. Medications: * Narcotic You will likely be sent home from the hospital with a prescription for the narcotic pain medication that worked best throughout your stay. * Cefadroxil -take antibiotic twice a day for 10 days to help prevent infection. * Aspirin Most patients will be required to take Aspirin 81mg twice a day for 6 weeks after surgery. This is obtained [id number] and a prescription is not necessary. * Other medications may be prescribed for specific circumstances. If you have any questions, please call the office at . * Resume previous home medications unless otherwise instructed TEDs/Elastic Stockings: The white elastic stockings help limit swelling and prevent blood clots from forming in your legs.~ The more you wear them, the more they work. Wear them for six weeks. Dressing Care: The dressing can be changed after physical therapy on postop day #1. Daily dry dressing changes for a few days, especially if the incision is still draining some. If the incision is not draining then you may leave the aydee open to air. If there is a little bit of drainage or if the aydee are getting stuck on your clothing then cover the incision with a dry dressing. The aydee will be removed at your 2 week follow-up appointment. Showering: You may shower 5 days from the day of surgery as long as the incision is no longer draining. You may shower with the aydee exposed. Let soapy water run over the aydee and pat them dry. Do not scrub or soak the incision. Things To Watch For: * Drainage from the incision site that occurs more than one week after your surgery. * Increased redness at the incision site. * Fever above 102 degrees Fahrenheit. * Unusual chest pain or shortness of breath. * Call [facility] at with any of the above problems Follow-Up Visit: Follow-up with Dr. Mccall's PA (Jericho Dominguez) 2-3 weeks after your day of surgery. He will remove your aydee and answer any questions. If you have any additional questions or concerns, Dr Mccall is usually in the office at the same time and will be available An appointment was probably scheduled when you signed-up for surgery in the office. If you have any questions call Office Instructions: More detailed instructions as well as Frequently Asked Questions were provided in a folder by our office when you signed-up for surgery. Please review these instructions when you get home. If you have any further questions or concerns, please feel free to call the office at [phone] Pending Studies at Discharge: No Stand-Alone Forms: My [facility] [employer], Smoking Cessation Medications and DC Order Prescriptions: New aspirin 81 mg Tablet,Delayed Release (Dr/Ec) 81 mg PO BID 42 Days Qty: 0 0RF oxycodone 5 mg Tablet 5 mg PO Q6 PRN (Reason: pain) Qty: 20 0RF cefadroxil 500 mg capsule 500 mg PO BID 10 Days Qty: 20 0RF Continued (DME) blood-glucose meter [Contour Next Meter] Misc See Rx Instructions .Route Qty: 1 0RF Rx Instructions: Test blood sugars 4 times a day (DME) Contour Next Test Strips Strip See Dose Instructions .ROUTE .MEDSUPPLY Qty: 400 0RF Dose Instruction: As directed Rx Instructions: Test 4 times daily verapamil 120 mg tablet extended release 120 mg PO QAM Qty: 90 1RF Rx Instructions: Take 1 tablet by mouth once daily insulin lispro [Humalog U-100 Insulin] 100 unit/mL solution See Rx Instructions subcut TID MDD 30 units Qty: 10 2RF Rx Instructions: subcutaneously three times a day; take 5 units with each meal plus sliding scale (DME) insulin syringe-needle U-100 [BD Insulin Syringe Ultra-Fine] 1 mL 30 gauge x 1/2" syringe See Rx Instructions .Route Qty: 100 5RF Rx Instructions: use three per day fluoxetine 40 mg capsule 40 mg PO QAM Qty: 90 3RF (DME) pen needle, diabetic [BD Ultra-Fine Laurita Pen Needle] 32 gauge x 5/32" needle See Rx Instructions .Route Qty: 400 3RF Rx Instructions: use a new pen needle with each injection--4 injections daily lisinopril [Zestril] 40 mg tablet 40 mg PO QAM Qty: 30 5RF metformin 500 mg tablet extended release 24 hr 1,000 mg PO BID 30 Days Qty: 120 5RF baclofen 5 mg tablet 5 - 10 mg PO DAILY PRN (Reason: pain) Qty: 20 0RF diclofenac sodium 1 % gel 2 g topical QID Qty: 100 2RF Patient Comments: uses prn pain Rx Instructions: apply to knee (DME) lancets [Microlet Lancet] [facility] [place] Rx Instructions .Route Qty: 200 2RF Rx Instructions: use 4x daily to check blood sugar Vyvanse 30 mg capsule 30 mg PO QAM Qty: 24 qkiufflqflap-xshr-ynzvl acid 18-400 mg-mcg Tablet 1 tab PO QAM insulin degludec [Tresiba FlexTouch U-100] 100 unit/mL (3 mL) insulin pen 20 unit subcut QAM acetaminophen [Tylenol Extra Strength] 500 mg Tablet 500 mg PO BID PRN (Reason: Pain) pantoprazole 40 mg tablet,delayed release (DR/EC) 40 mg PO QAM PRN (Reason: reflux) Kraessie/Other Patient Handouts: Knee Replace Home Recovery Admission Data Admit Date/Time: 07/19/23 10:25 Attending Provider: Jericho Mccall Admit Provider: Jericho Mccall Primary Care Provider: Swetha Bryant Other Providers: [facility] Other Interventions: Discharge Summary Assessment (RN) Last Done: 07/20/23 12:37
== END 2023-07-20 14:33 | disposition home health service (06) ==
LOC: 3E 06:31 → ASU 06:31

== ENCOUNTER 2023-09-28 05:43 | Observation (INO) ==
--- NOTE | 2023-09-07 12:40 | PAT Medication Instructions ---
Medication Instructions Date of Service September 07, 2023 Home Medications Medication Instructions Recorded Contour Next Meter (blood-glucose #1 ea 09/17/22 meter) Contour Next Test Strips (blood #400 ea 09/17/22 sugar diagnostic) lisinopril 40 mg tablet (Zestril) 40 mg PO QAM #30 tabs 12/18/22 metformin 500 mg tablet,extended 1,000 mg (2 x 500 mg) PO BID 30 12/18/22 release 24 hr days #120 tabs verapamil 120 mg tablet,extended 120 mg PO QAM #90 tabs 02/05/23 release lancets (Microlet Lancet) #200 ea 03/08/23 insulin syringe-needle U-100 1 mL #100 ea 05/07/23 30 gauge x 1/2" (BD Insulin Syringe Ultra-Fine) fluoxetine 40 mg capsule 40 mg PO QAM #90 caps 05/26/23 pen needle, diabetic 32 gauge x #400 ea 07/05/23 5/32" (BD Ultra-Fine Laurita Pen Needle) baclofen 5 mg tablet 5 - 10 mg (1 - 2 x 5 mg) PO DAILY 07/20/23 PRN pain #20 tabs albuterol sulfate 90 mcg/actuation See Rx Instructions inhalation 08/04/23 aerosol inhaler (Ventolin HFA) .COMPLEX PRN shortness of breath or wheezing #8.5 grams insulin lispro 100 unit/mL See Rx Instructions .Route 09/03/23 subcutaneous solution .COMPLEX #10 mL acetaminophen 500 mg tablet (Tylenol Extra Strength) 500 mg PO BID PRN Pain pantoprazole 40 mg tablet,delayed release 40 mg PO QAM PRN reflux lisinopril 40 mg tablet (Zestril) 40 mg PO QAM metformin 500 mg tablet,extended release 24 hr 1,000 mg (2 x 500 mg) PO BID verapamil 120 mg tablet,extended release 120 mg PO QAM fluoxetine 40 mg capsule 40 mg PO QAM multivitamin-ferrous fumarate-folic acid 18 mg-400 mcg tablet 1 tab PO QAM baclofen 5 mg tablet 5 - 10 mg (1 - 2 x 5 mg) PO DAILY PRN pain albuterol sulfate 90 mcg/actuation aerosol inhaler (Ventolin HFA) See Rx Instructions inhalation .COMPLEX PRN shortness of breath or wheezing insulin degludec 100 unit/mL (3 mL) subcutaneous pen (Tresiba FlexTouch U-100 insulin) 20 unit subcut QPM insulin lispro 100 unit/mL subcutaneous solution See Rx Instructions diclofenac sodium 1 % topical gel 2 g topical QID PRN Pain manganese 15 mg capsule 15 mg PO DAILY Continue as directed baclofen 5 mg tablet 5 - 10 mg (1 - 2 x 5 mg) PO DAILY PRN pain (if needed) STOP taking 2 weeks before surgery (or as soon as possible): manganese 15 mg capsule 15 mg PO DAILY STOP taking 24 hours before surgery diclofenac sodium 1 % topical gel 2 g topical QID PRN Pain DO NOT take the morning of surgery lisinopril 40 mg tablet (Zestril) 40 mg PO QAM metformin 500 mg tablet,extended release 24 hr 1,000 mg (2 x 500 mg) PO BID multivitamin-ferrous fumarate-folic acid 18 mg-400 mcg tablet 1 tab PO QAM insulin lispro 100 unit/mL subcutaneous solution See Rx Instructions Take morning of surgery With a small sip of water, OTHERWISE NOTHING TO EAT OR DRINK AFTER MIDNIGHT: acetaminophen 500 mg tablet (Tylenol Extra Strength) 500 mg PO BID PRN Pain (if needed) pantoprazole 40 mg tablet,delayed release 40 mg PO QAM PRN reflux (if needed) verapamil 120 mg tablet,extended release 120 mg PO QAM fluoxetine 40 mg capsule 40 mg PO QAM albuterol sulfate 90 mcg/actuation aerosol inhaler (Ventolin HFA) See Rx Ins tructions inhalation .COMPLEX PRN shortness of breath or wheezing (use if needed; please bring with you to hospital day of surgery if possible) Take evening before surgery acetaminophen 500 mg tablet (Tylenol Extra Strength) 500 mg PO BID PRN Pain (if needed) metformin 500 mg tablet,extended release 24 hr 1,000 mg (2 x 500 mg) PO BID albuterol sulfate 90 mcg/actuation aerosol inhaler (Ventolin HFA) See Rx Instructions inhalation .COMPLEX PRN shortness of breath or wheezing (if needed) insulin degludec 100 unit/mL (3 mL) subcutaneous pen (Tresiba FlexTouch U-100 insulin) 20 unit subcut QPM insulin lispro 100 unit/mL subcutaneous solution See Rx Instructions Other Notes If you have any questions please call us at [phone] or [phone] or [phone] or [phone]
--- NOTE | 2023-09-16 12:58 | Anesthesiology Consultation ---
Date of Service September 16, 2023 Assessment & Plan (1) Encounter for pre-operative examination: - Check BSG AM DOS - Infectious disease screening: Per assessment on 09/16/23: No known infectious disease contacts or current infectious disease symptoms. No noted recent Covid positive test result. - S/P Right TKA (07/19/23): SAB L2-3, 2 attempts + regional at [facility] Chart Review Chart Review: Acceptable Risk for Surgery and Patient seen in Pre Admission Testing Teaching & Discussion Pre-Anesthesia Teaching/Discussion Notes: Instructed NPO after midnight before surgery,except medications with 15 cc of water. Medication instructions provided according to the PAT guidelines. History Surgery Operation Date: 09/28/23 12:05 Proposed Procedures p C3-C4 Anterior Cervical Discectomy and Fusion - Marlo Brunner MD Height/Weight Height: 5 ft 1 in Weight: 75.7 kg Allergies Allergy/AdvReac Type Severity Reaction Status Date / Time aspirin Allergy Severe Swelling, Verified 09/08/23 14:16 anaphylaxis ("[facility] allergy tested-tolerated 81mg") ibuprofen Allergy Severe Swelling Verified 09/08/23 14:16 anaphylaxis (motrin) NSAIDS (Non-Steroidal Allergy Severe Anaphylaxis Verified 09/08/23 14:16 Anti-Inflamma (motrin) geri Allergy Severe Dyspnea Verified 09/08/23 14:16 Sulfa (Sulfonamide Allergy Severe Anaphylaxis Verified 09/07/23 11:19 Antibiotics) adhesive Allergy Intermediate Rash Verified 09/08/23 14:16 gluten Allergy Intermediate Asthma Verified 09/08/23 14:16 peanut AdvReac Intermediate Flatulence Verified 09/07/23 11:19 Medications Home Medications Medication Instructions Recorded Confirmed Last Taken acetaminophen 500 mg tablet 500 mg PO BID PRN Pain 04/27/22 09/07/23 07/18/23 20:00 (Tylenol Extra Strength) Contour Next Meter (blood-glucose #1 ea 09/17/22 08/19/23 Unknown meter) Contour Next Test Strips (blood #400 ea 09/17/22 08/19/23 Unknown sugar diagnostic) pantoprazole 40 mg tablet,delayed 40 mg PO QAM PRN reflux 12/07/22 09/07/23 Unknown release lisinopril 40 mg tablet (Zestril) 40 mg PO QAM #30 tabs 12/18/22 09/07/23 07/19/23 06:10 metformin 500 mg tablet,extended 1,000 mg (2 x 500 mg) PO BID 30 12/18/22 09/07/23 07/18/23 20:00 release 24 hr days #120 tabs verapamil 120 mg tablet,extended 120 mg PO QAM #90 tabs 02/05/23 09/07/23 07/19/23 06:10 release lancets (Microlet Lancet) #200 ea 03/08/23 08/19/23 Unknown insulin syringe-needle U-100 1 mL #100 ea 05/07/23 08/19/23 Unknown 30 gauge x 1/2" (BD Insulin Syringe Ultra-Fine) fluoxetine 40 mg capsule 40 mg PO QAM #90 caps 05/26/23 09/07/23 07/18/23 08:00 multivitamin-ferrous 1 tab PO QAM 06/15/23 09/07/23 07/18/23 08:00 fumarate-folic acid 18 mg-400 mcg tablet pen needle, diabetic 32 gauge x #400 ea 07/05/23 08/19/23 Unknown 5/32" (BD Ultra-Fine Laurita Pen Needle) baclofen 5 mg tablet 5 - 10 mg (1 - 2 x 5 mg) PO DAILY 07/20/23 09/07/23 Unknown PRN pain #20 tabs albuterol sulfate 90 mcg/actuation See Rx Instructions inhalation 08/04/23 09/07/23 Unknown aerosol inhaler (Ventolin HFA) .COMPLEX PRN shortness of breath or wheezing #8.5 grams insulin degludec 100 unit/mL (3 20 unit subcut QPM 08/16/23 09/07/23 Unknown mL) subcutaneous pen (Tresiba FlexTouch U-100 insulin) insulin lispro 100 unit/mL See Rx Instructions .Route 09/03/23 09/07/23 Unknown subcutaneous solution .COMPLEX #10 mL diclofenac sodium 1 % topical gel 2 g topical QID PRN Pain 09/07/23 09/07/23 Unknown manganese 15 mg capsule 15 mg PO DAILY 09/07/23 09/07/23 Unknown Past Medical History Medical History ADHD Allergic rhinitis Asthma Cardiac murmur Echo 07/2022: No significant valvular disease Chronic upper back pain Degenerative cervical spinal stenosis Arm numbness Depression with anxiety Diabetic neuropathy Feet Dyslipidemia Esophageal reflux disease Generalized osteoarthritis of multiple sites Gluten enteropathy Hx of basal cell carcinoma Hx of vertigo Hypertension Myelomalacia of cervical cord Arm numbness Obesity Osteopenia Pulmonary nodules Monitored by PCP, "Stable" Sensorineural hearing loss (SNHL) of both ears Stress incontinence Type 2 diabetes mellitus Exercise / Class Metabolic Activity II 4-5 Yardwork/Stairs/Walk up hill Past Family History Family History Mother Myocardial infarction Breast cancer Sister Myocardial infarction Breast cancer Uterine cancer Father Myocardial infarction Grandmother Diabetes Grandfather Alcohol abuse Stroke syndrome Family/Other Myocardial infarction Other No family history of adverse response to anesthesia Denies family history of Colon cancer Ovarian cancer Prostate cancer Past Surgical History Surgical History H/O total hysterectomy History of bilateral knee replacement Right TKA: SAB L2-3, 2 attempts + regional at [facility] (07/19/23) History of cataract surgery R/L History of tonsillectomy and adenoidectomy History of tooth extraction Hx of basal cell carcinoma excision Hx of cardiac cath 2001- no stents Hx of hand surgery left little finger repaired after fall S/P appendectomy S/P cholecystectomy S/P emergency section x1 Status post carpal tunnel release of both wrists Status post debridement of bone spur B/L heels Past Anesthesia History No Hx of Anesthesia Complications and No Family Hx of Anesthesia Complications History of PONV No Hx of PONV and No Hx of Motion Sickness Social History Smoking Status: Former smoker tobacco type: cigarettes Do You Dip or Chew Tobacco: No Smoking End Date: Quit 1984 (Hx 1 PPD) Hx Alcohol Use: Yes alcohol intake frequency: holidays/special occasions only Hx Substance Use: No substance use type: does not use Review of Systems Patient denies chest pain, shortness of breath, dyspnea on exertion, fever, chills, cough, wheezing, palpitations. Physical Exam Vital Signs BP 132/70 P 74 TEMP SP02 97%RA RESP 18 Physical Decreased cervical extension range of motion. Full TMJ range of motion. TMD 3 finger breaths Mallampati Score 1 Dentition: missing right upper side, Left upper side implant Lungs: clear throughout to auscultation Cardiac: regular rate and rhythm, II/ systolic murmur Spine: normal Carotid arteries: negative bruit Extremities: no LE edema Lab Results Anesthesia Preop Results Results Anesthesia Widget: WBC 5.98 K/ul (4.8-10.8) 09/16/23 Hgb 12.9 g/dl (12.0-16.0) 09/16/23 Hct 38.3 % (37.0-47.0) 09/16/23 Plt 198 K/uL (130-400) 09/16/23 Na 139 mmol/L (136-145) 09/16/23 K 4.5 mmol/L (3.5-5.1) 09/16/23 Cl 105 mmol/L (98-107) 09/16/23 CO2 30 mmol/L (21-32) 09/16/23 BUN 26 mg/dl (6-23) H 09/16/23 Creat 0.96 mg/dl (0.6-1.2) 09/16/23 Glucose Level 114 mg/dl (70-99(Fasting)) H 09/16/23 PT 10.8 Seconds (9.0-12.0) 09/16/23 PTT 26 Seconds (21-31) 09/16/23 INR 1.0 (0.9-1.1) 09/16/23 HA1c 7.7 % (4.5-5.6) H 09/16/23 Blood Type A Negative 09/16/23 Antibody Screen NEGATIVE 09/16/23 Testing Electrocardiogram Date: 10/20/22 Findings: + NSR @ (65bpm ) Minimal voltage criteria for LVH, may be normal variant Nonspecific T wave abnormality Septal infarct (cited on or before June 27, 2022) When compared EKG from June 27, 2022no significant changes found (Poor R wave progression since at least 2019 on previous EKGs) Chest X-Ray Ribs with 2V CXR Date: 01/29/23 No acute process of the chest. No acute displaced rib fracture or pneumothorax identified. Echocardiogram Date: 08/03/22 EF: 65-70% LV Function: normal RWMA: + none Other Findings: + LVH (mild/concentric ) Compared with study of 06/26/22, no significant change was found Other Testing Cervical spine MRI Date: 06/30/23 FINDINGS: The alignment is anatomical. C2-C3: Unremarkable. C3-C4: Broad-based posterior disc bulge and ligamentum flavum hypertrophy results in moderate canal stenosis, AP diameter 6 mm, and severe bilateral neural foraminal stenosis. C4-C5: Left base posterior disc bulge is seen with mild canal stenosis and moderate bilateral neuroforaminal stenosis. C5-C6: Broad-based posterior disc bulge and facet arthropathy results in mild canal stenosis and moderate right and mild left neuroforaminal stenosis. C6-C7: Broad-based posterior disc bulge is seen with mild canal stenosis and bilateral facet arthropathy resulting in severe left and moderate right neural foraminal stenosis. C7-T1: Bilateral facet arthropathy results in severe left and moderate right neuroforaminal stenosis. The spinal ligaments are intact, without evidence of disruption or abnormal signal intensity. The spinal cord is normal in signal intensity and there is no evidence of cord edema. There is no evidence of an extradural, intradural, extramedullary or intramedullary lesion. Visualized soft tissues are normal. Visualized brain parenchyma is normal. IMPRESSION: Multilevel degenerative changes as above with up to moderate canal stenosis, AP diameter 6 mm, and severe bilateral neuroforaminal stenosis.
[2023-09-28] MEDS: LR 60ML/HR IV SCH (06:25)
[2023-09-28] MEDS: LR 15ML/HR IV SCH (06:37)
[2023-09-28] MEDS ORDERED: ROCURONIUM BROMIDE 10 MG/ML 5 ML VIAL IV ONE ×3 (07:07→10:02)
[2023-09-28] MEDS ORDERED: LIDOCAINE 2% 2 ML VIAL/AMP(20MG/ML) INFIL ONE (07:07)
[2023-09-28] MEDS ORDERED: SUCCINYLCHOLINE CHLORIDE 20 MG/ML 10 ML VIAL IV ONE (07:07)
[2023-09-28] MEDS ORDERED: fentaNYL citrate PF 100 MCG/2 ML VIAL ONE ×3 (07:07→09:02)
[2023-09-28] MEDS ORDERED: MIDAZOLAM HCL 1 MG/ML 2ML VIAL ONE (07:07)
[2023-09-28] MEDS ORDERED: PROPOFOL IV EMULSION 10 MG/ML 20 ML VIAL IV ONE (07:07)
[2023-09-28] MEDS ORDERED: HYDROmorphone INJ 2 MG/ML SYR/VIAL IV PRN (07:12)
[2023-09-28] MEDS ORDERED: ATROPINE SULFATE 0.1 MG/ML 10ML SYR IV PRN (07:12)
[2023-09-28] MEDS ORDERED: ePHEDrine sulfate 50 MG/ML AMP IV PRN (07:12)
[2023-09-28] MEDS ORDERED: ONDANSETRON INJ 2 MG/ML 2 ML VIAL IV PRN ×2 (07:12→10:41)
--- NOTE | 2023-09-28 07:31 | History & Physical Bridge Note ---
Date of Service September 28, 2023 History & Physical Bridge Note I have examined the patient, reviewed the History & Physical and in the interval since the performance of the History & Physical I have noted the following changes of clinical significance: no changes noted
[2023-09-28] MEDS: ceFAZolin 2000MG 2,000 MG/15 ML SYR IV SCH (08:00)
[2023-09-28] MEDS ORDERED: ACETAMINOPHEN 1000 MG/100 ML IV IV ONE (08:07)
[2023-09-28] MEDS ORDERED: ONDANSETRON INJ 2 MG/ML 2 ML VIAL ONE (10:01)
[2023-09-28] MEDS ORDERED: DEXAMETHASONE SOD INJ 4 MG/ML VIAL ONE (10:01)
[2023-09-28] MEDS ORDERED: ePHEDrine sulfate 50 MG/5 ML SYR ONE (10:01)
[2023-09-28] MEDS ORDERED: SUGAMMADEX SODIUM 200 MG/2 ML VIAL IV ONE (10:13)
[2023-09-28] MEDS: FLOSEAL HEMOSTATIC MATRIX 5ML TOP ONE (10:17)
[2023-09-28] MEDS ORDERED: NEOSTIGMINE METHYLSULFATE 1 MG/ML 10ML VIAL ONE (10:21)
[2023-09-28] MEDS ORDERED: GLYCOPYRROLATE 0.2 MG/ML VIAL ONE ×2 (10:21→10:22)
[2023-09-28] MEDS: VANCOMYCIN HCL 1000MG/20ML VIAL ONE (10:25)
[2023-09-28] MEDS: THROMBIN 5000 UNITS KIT ONE (10:26)
[2023-09-28] MEDS: GELATIN SPONGE 12-7MM ONE (10:26)
[2023-09-28] MEDS ORDERED: DO NOT ADMINISTER FLU VACCINE PRN (10:41)
[2023-09-28] MEDS ORDERED: RACEPINEPHRINE 2.25% NEBU SOLN 0.5 ML VIAL INH PRN (10:41)
[2023-09-28] MEDS ORDERED: PROMETHAZINE HCL 12.5 MG in SODIUM CHLORIDE 0.9% 50 ML IV PRN (10:41)
[2023-09-28] MEDS ORDERED: SOD PHOSPHATE/SOD BIPHOSPHATE ENEMA 132 ML BTL PR PRN (10:41)
[2023-09-28] MEDS ORDERED: ALUMINUM/MAGNESIUM SUSP 30 ML UDC PO PRN (10:41)
[2023-09-28] MEDS ORDERED: hydrOXYzine HCl 25 MG TAB PO PRN (10:41)
[2023-09-28] MEDS ORDERED: bisacodyL 10 MG SUPP PR PRN (10:41)
[2023-09-28] MEDS ORDERED: diphenhydrAMINE Capsule 25 MG CAP PO PRN (10:41)
[2023-09-28] MEDS ORDERED: MAGNESIUM HYDROXIDE SUSP 30 ML UDC PO PRN (10:41)
[2023-09-28] MEDS ORDERED: ONDANSETRON 4 MG OD TAB PO PRN (10:41)
[2023-09-28] MEDS ORDERED: LORazepam 0.5 MG in SYRINGE 0.25 ML IV PRN (10:41)
[2023-09-28] MEDS ORDERED: METOCLOPRAMIDE HCL INJ 5 MG/ML 2 ML VIAL IV PRN (10:41)
[2023-09-28] MEDS ORDERED: NALOXONE HCL 0.4 MG/1 ML VIAL/CARP IV PRN (10:41)
[2023-09-28] MEDS ORDERED: DO NOT ADMINISTER PNEUMOCOCCAL VACCINE PRN (10:41)
[2023-09-28] MEDS ORDERED: HYDROmorphone INJ 0.5 MG/0.5 ML SYR IV PRN (10:41)
[2023-09-28] MEDS ORDERED: FAMOTIDINE 20 MG TAB PO PRN (10:41)
[2023-09-28] MEDS ORDERED: LORazepam 0.5 MG TAB PO PRN (10:41)
[2023-09-28] MEDS ORDERED: dexAMETHasone 8 MG in SYRINGE 0 ML IV PRN (10:41)
[2023-09-28] MEDS ORDERED: oxyCODONE/ACETAMINOPHEN 5mg/325mg TAB PO PRN (10:41)
[2023-09-28] MEDS ORDERED: ACETAMINOPHEN 1,000 MG/100 ML VIAL IV PRN (10:41)
--- NOTE | 2023-09-28 10:41 | Post Operative Brief Note ---
PG Immediate Post Op with CF Date of Surgery September 28, 2023 Pre & Post Diagnosis Operation Date: 09/28/23 07:15 Pre-Op Diagnosis: Spinal Stenosis Myelomalacia Post-Op Diagnosis: Spinal Stenosis Myelomalacia I identified the patient and participated in the time-out.: Yes Procedure Operation Date: 09/28/23 07:15 Actual Procedures p C3-C4 Anterior Cervical Discectomy and Fusion(Not Applicable) - Marlo Brunner MD Surgeon Marlo Brunner MD Commercial Mortgage Broker none Estimated Blood Loss 4 Findings Consistent with Post-Op Diagnosis
--- NOTE | 2023-09-28 11:05 | Fluoroscopy Report ---
FL cervical 2-3V CLINICAL HISTORY: ACDF C3-C4 COMPARISON STUDY: MRI of the cervical spine June 30, 2023. Cervical spine radiographs September 03, 2023. FLUOROSCOPY TIME: 1 minute and 5 seconds. Ka, r: 10.61 mGy FLUOROSCOPIC IMAGES: 7 FINDINGS: Fluoroscopy was provided during C3-C4 anterior discectomy and fusion. There are no unexpect ed radiopaque foreign bodies. Hardware is intact. An endotracheal tube is partially imaged. IMPRESSION: Fluoroscopy provided during C3-C4 anterior discectomy and fusion. ACT 112: Negative or not required by law. Electronically signed by: Ermias Spring M.D. 09/28/2023 11:04 AM
[2023-09-28] MEDS: fentaNYL citrate PF 100 MCG/2 ML VIAL IV PRN (11:18)
[2023-09-28] MEDS ORDERED: ACETAMINOPHEN 500 MG TAB PO PRN (12:09)
[2023-09-28] MEDS ORDERED: ALBUTEROL HFA 8 GM INHALER INH PRN (12:09)
[2023-09-28] MEDS ORDERED: PHARMACY GLYCEMIC MGMT CONSULT PRN (12:09)
[2023-09-28] MEDS ORDERED: DEXTROSE 50% 50 ML SYRINGE IV PRN ×2 (12:30→12:32)
[2023-09-28] MEDS ORDERED: CARBOHYDRATES FOR HYPOGLYCEMIA PO PRN ×2 (12:30→12:32)
[2023-09-28] MEDS ORDERED: GLUCOSE 10 TAB/TUBE PO PRN ×2 (12:30→12:32)
[2023-09-28] MEDS ORDERED: GLUCAGON FOR INJ 1 MG VIAL IM PRN (12:30)
[2023-09-28] MEDS ORDERED: GLUCOSE 40% GEL 15 GM TUBE PO PRN ×2 (12:30→12:32)
[2023-09-28] MEDS ORDERED: GLUCAGON FOR INJ 1 MG VIAL SQ PRN (12:32)
--- NOTE | 2023-09-28 13:22 | Pharmacy Report ---
Pharmacy Glycemic Short Note 2 - Date of Service September 28, 2023 - Glycemic Short BSG Results (Last 24 hours): 09/28/23 09/28/23 09/28/23 06:17 08:11 08:52 POC Glucose 102 H 90 119 H 09/28/23 09/28/23 09/28/23 09:48 10:51 12:15 POC Glucose 142 H 175 H 217 H OUTPATIENT ANTIDIABETIC REGIMEN: * Tresiba 20 units SC HS * Insulin lispro 5 units SC TIDM + SSI * Metformin 1 g PO BIDM HbA1c: 7.7% (09/16/23) ASSESSMENT: * CLEMENTE is an 78 year old female POD #0 s/p discectomy/fusion * Received 8 mg IV dexamethasone in OR * Preop BSG of 90 mg/dL, postop BSG of 217 mg/dL * Will use weight-based stress of 3 Novolog parameters w/ ~full weight-based stress of 2 Lantus (~0.33 unit/kg) PLAN FOR INPATIENT GLYCEMIC CONTROL: * Hold outpatient oral diabetes medications * Basal insulin * Lantus 25 units SC x 1 postoperatively * Lantus 0-10-15 units SC HS (see EHR for details) * Bolus insulin * NovoLog per scale ACHS or Q6hrs while NPO * Goal Range: Low 110 mg/dL - High 140 mg/dL * Correction Factor: 20 mg/dL/unit * Nutritional / Prandial insulin per carb ratio of 1 unit per 7 grams CHO consumed
--- NOTE | 2023-09-28 13:22 | Anesthesiology Progress Note ---
Date of Service September 28, 2023 Anesthesia Post Procedure Vital Signs Vital Signs: Temp Pulse Pulse Resp BP Pulse Ox O2 Del Method 09/28/23 13:09 37.0 C 83 16 126/61 97 Nasal Cannula 09/28/23 12:40 36.8 C 82 16 130/62 98 Nasal Cannula 09/28/23 12:10 36.8 C 84 16 134/63 97 Nasal Cannula 09/28/23 12:00 37.0 C 79 18 127/55 L 96 Nasal Cannula 09/28/23 11:50 79 19 130/59 L 95 Nasal Cannula 09/28/23 11:40 76 16 129/57 L 94 Nasal Cannula 09/28/23 11:30 73 14 130/56 L 93 Nasal Cannula 09/28/23 11:20 73 16 146/64 H 93 Nasal Cannula 09/28/23 11:10 73 18 150/62 H 96 Oxymask 09/28/23 11:00 79 17 157/62 H 93 Oxymask 09/28/23 10:50 36.0 C L 81 16 161/81 H 95 Oxymask 09/28/23 06:05 36.5 C 60 18 128/67 96 Room Air O2 Flow Rate 09/28/23 13:09 2 09/28/23 12:40 2 09/28/23 12:10 2 09/28/23 12:00 2 09/28/23 11:50 2 09/28/23 11:40 2 09/28/23 11:30 2 09/28/23 11:20 2 09/28/23 11:10 6 09/28/23 11:00 6 09/28/23 10:50 6 09/28/23 06:05 Pain Intensity Neck: Pain Intensity: 1 Transfer of Care Handoff Completed per policy Notes Mental Status: alert / awake / arousable and participated in evaluation Patient Amnestic to Procedure: Yes Nausea / Vomiting: adequately controlled Pain: adequately controlled Airway Patency, RR, SpO2: stable & adequate BP & HR: stable & adequate Hydration State: stable & adequate Anesthetic Complications: no major complications apparent and Pt Satisfied with anesthetic care
[2023-09-28] MEDS ORDERED: LANTUS PER UNIT CHARGE SC ONE (13:30)
--- NOTE | 2023-09-28 13:39 | Hospitalist Consultation ---
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 Radial pulses intact. 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 Pharmacy glycemic consult in place (3) Depression with anxiety: Depression/anxiety Continue fluoxetine (4) Asthma: No wheezing at bedside May use albuterol every 6 hours as needed as needed. No evidence of acute exacerbation Slight postoperative hypoxia suspect atelectasis, continue incentive spirometry (5) Hypertension: Hypertension Continue verapamil, normotensive at bedside assessment Resume lisinopril 09/29/2023 Plan DVT prophylaxis: Per primary team Diet: DM 2 Disposition: Medical surgical CODE STATUS: Full code At bedside assessment patient is stable and appears well. Recommend morning BMP/CMP. Diabetic orders have been placed and patient has been followed by pharmacy. Hemodynamically stable. Recommend continuing incentive spirometry and weaning oxygen, she is 98% on 2 L at time of bedside may wean down oxygen and follow. Suspect postop atelectasis. Medicine will continue to follow. History of Present Illness Attending Physician: Marlo Brunner MD History of Present Illness "Alex" is seen at the bedside. She reports she went in for cervical discectomy due to left arm numbness/tingling and pain. She has not noticed a significant pre versus postop change at time of bedside, but is hopeful as swelling goes down this will improve. She reports she does take insulin for diabetes, last took her home insulin 20 units last night. At bedside she reports she feels okay postop. Denies fever, chills, sweats, chest pain, chest pressure, lightheadedness, dizziness. Has some pain/numbness/tingling in her left arm similar to prior but not worse. She feels a little stiff in the neck but otherwise denies pain in her neck at time of visit. Denies chest pain leading up to admission Allergies Allergy/AdvReac Type Severity Reaction Status Date / Time aspirin Allergy Severe Swelling, Verified 09/28/23 06:21 anaphylaxis ("[facility] allergy tested-tolerated 81mg") ibuprofen Allergy Severe Swelling Verified 09/28/23 06:21 anaphylaxis (motrin) NSAIDS (Non-Steroidal Allergy Severe Anaphylaxis Verified 09/28/23 06:21 Anti-Inflamma (motrin) geri Allergy Severe Dyspnea Verified 09/28/23 06:21 Sulfa (Sulfonamide Allergy Severe Anaphylaxis Verified 09/28/23 06:21 Antibiotics) adhesive Allergy Intermediate Rash Verified 09/28/23 06:21 gluten Allergy Intermediate Asthma Verified 09/28/23 06:21 peanut AdvReac Intermediate Flatulence Verified 09/28/23 06:21 Home Medications Medication Instructions Recorded Confirmed Type acetaminophen 500 mg tablet 500 mg PO BID PRN Pain 04/27/22 09/28/23 History (Tylenol Extra Strength) Contour Next Meter (blood-glucose #1 ea 09/17/22 08/19/23 Rx meter) Contour Next Test Strips (blood #400 ea 09/17/22 08/19/23 Rx sugar diagnostic) pantoprazole 40 mg tablet,delayed 40 mg PO QAM PRN reflux 12/07/22 09/28/23 History release lisinopril 40 mg tablet (Zestril) 40 mg PO QAM #30 tabs 12/18/22 09/28/23 Rx metformin 500 mg tablet,extended 1,000 mg (2 x 500 mg) PO BID 30 12/18/22 09/28/23 Rx release 24 hr days #120 tabs verapamil 120 mg tablet,extended 120 mg PO QAM #90 tabs 02/05/23 09/28/23 Rx release lancets (Microlet Lancet) #200 ea 03/08/23 08/19/23 Rx insulin syringe-needle U-100 1 mL #100 ea 05/07/23 08/19/23 Rx 30 gauge x 1/2" (BD Insulin Syringe Ultra-Fine) fluoxetine 40 mg capsule 40 mg PO QAM #90 caps 05/26/23 09/28/23 Rx multivitamin-ferrous 1 tab PO QAM 06/15/23 09/28/23 History fumarate-folic acid 18 mg-400 mcg tablet pen needle, diabetic 32 gauge x #400 ea 07/05/23 08/19/23 Rx 5/32" (BD Ultra-Fine Laurita Pen Needle) baclofen 5 mg tablet 5 - 10 mg (1 - 2 x 5 mg) PO DAILY 07/20/23 09/28/23 Rx PRN pain #20 tabs albuterol sulfate 90 mcg/actuation See Rx Instructions inhalation 08/04/23 09/28/23 Rx aerosol inhaler (Ventolin HFA) .COMPLEX PRN shortness of breath or wheezing #8.5 grams insulin degludec 100 unit/mL (3 20 unit subcut QPM 08/16/23 09/28/23 History mL) subcutaneous pen (Tresiba FlexTouch U-100 insulin) insulin lispro 100 unit/mL See Rx Instructions .Route 09/03/23 09/28/23 Rx subcutaneous solution .COMPLEX #10 mL diclofenac sodium 1 % topical gel 2 g topical QID PRN Pain 09/07/23 09/28/23 History manganese 15 mg capsule 15 mg PO DAILY 09/07/23 09/28/23 History blood-glucose sensor (FreeStyle #2 ea 09/20/23 Rx Vicky 3 Sensor device) Patient History Medical History ADHD Allergic rhinitis Asthma Cardiac murmur Echo 07/2022: No significant valvular disease Chronic upper back pain Degenerative cervical spinal stenosis Arm numbness Depression with anxiety Diabetic neuropathy Feet Dyslipidemia Esophageal reflux disease Generalized osteoarthritis of multiple sites Gluten enteropathy Hx of basal cell carcinoma Hx of vertigo Hypertension Myelomalacia of cervical cord Arm numbness Obesity Osteopenia Pulmonary nodules Monitored by PCP, "Stable" Sensorineural hearing loss (SNHL) of both ears Stress incontinence Type 2 diabetes mellitus Surgical History H/O total hysterectomy History of bilateral knee replacement Right TKA: SAB L2-3, 2 attempts + regional at [facility] (07/19/23) History of cataract surgery R/L History of tonsillectomy and adenoidectomy History of tooth extraction Hx of basal cell carcinoma excision Hx of cardiac cath 2001- no stents Hx of hand surgery left little finger repaired after fall S/P appendectomy S/P cholecystectomy S/P emergency section x1 Status post carpal tunnel release of both wrists Status post debridement of bone spur B/L heels Family History Mother Myocardial infarction Breast cancer Sister Myocardial infarction Breast cancer Uterine cancer Father Myocardial infarction Grandmother Diabetes Grandfather Alcohol abuse Stroke syndrome Family/Other Myocardial infarction Other No family history of adverse response to anesthesia Denies family history of Colon cancer Ovarian cancer Prostate cancer Social History Smoking Status: Former smoker Tobacco Type: Cigarettes Age Started Using Tobacco: 14; Age Quit Using Tobacco: 39; packs per day: 1; Smoking End Date: Quit 1984 (Hx 1 PPD); Second Hand Exposure: No; Do You Dip or Chew Tobacco: No; Tobacco Cessation Education Requested by Patient: No Hx Alcohol Use: Yes Hx Substance Use: No Preferred Language: Czech Communication Ability: Effective Visual Impairment: No Limitations Hearing Ability: Normal Fondant Puff Maker Required: No Beliefs That Will Affect Care: None marital status: / Current Living Situation: Alone current occupational status: retired 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 NAD. Cooperative. HEENT: Atraumatic, normocephalic. Pulm: CTAB A&P. -wheezes, -rales, -rhonchi. Symmetrical chest rise. No increased work of breathing. No respiratory distress. Cardiac: RRR, +soft sm, -rg. Radial pulses intact and symmetrical. Neuro: Paresthesias of the L hand, but sensation to soft touch is groslsy intact. junior software engineer strength intact but fatigues easily. radial pulse intact. Neck: surgical dressing c/d/i Results & Data Results & Data Vital Signs (Past 12 Hours) Vital Signs Temp Pulse Pulse Resp BP Pulse Ox O2 Del Method 09/28/23 13:09 37.0 C 83 16 126/61 97 Nasal Cannula 09/28/23 12:40 36.8 C 82 16 130/62 98 Nasal Cannula 09/28/23 12:10 36.8 C 84 16 134/63 97 Nasal Cannula 09/28/23 12:00 37.0 C 79 18 127/55 L 96 Nasal Cannula 09/28/23 11:50 79 19 130/59 L 95 Nasal Cannula 09/28/23 11:40 76 16 129/57 L 94 Nasal Cannula 09/28/23 11:30 73 14 130/56 L 93 Nasal Cannula 09/28/23 11:20 73 16 146/64 H 93 Nasal Cannula 09/28/23 11:10 73 18 150/62 H 96 Oxymask 09/28/23 11:00 79 17 157/62 H 93 Oxymask 09/28/23 10:50 36.0 C L 81 16 161/81 H 95 Oxymask 09/28/23 06:05 36.5 C 60 18 128/67 96 Room Air O2 Flow Rate 09/28/23 13:09 2 09/28/23 12:40 2 09/28/23 12:10 2 09/28/23 12:00 2 09/28/23 11:50 2 09/28/23 11:40 2 09/28/23 11:30 2 09/28/23 11:20 2 09/28/23 11:10 6 09/28/23 11:00 6 09/28/23 10:50 6 09/28/23 06:05 PG Care Time/CCT Total # of Minutes Spent Total Time Spent with Patient: Total time spent is greater than 50% in coordination of care (as documented) at patient's floor/unit and/or counseling patient: Coding Level of Care Code 57016 IN/OBS CONSULT LVL 4,60M Diagnoses Degenerative cervical spinal stenosis M48.02 Type 2 diabetes mellitus E11.9 Depression with anxiety F41.8 Asthma J45.909 Hypertension I10
[2023-09-28] MEDS: INSULIN ASPART PER UNIT CHARGE SC SCH (13:46)
[2023-09-28] MEDS: LANTUS PER UNIT CHARGE SC ONE (13:48)
[2023-09-28] MEDS: ceFAZolin 1000MG 1,000 MG/7.5 ML SYR IV SCH (16:04)
[2023-09-28] MEDS ORDERED: INSULIN ASPART PER UNIT CHARGE SC SCH (16:30)
[2023-09-28] MEDS: ACETAMINOPHEN 500 MG TAB PO PRN (20:09)
[2023-09-28] MEDS ORDERED: LANTUS PER UNIT CHARGE SQ SCH (21:00)
[2023-09-28] MEDS: DOCUSATE SODIUM/SENNA 50/8.6MG TAB PO SCH (21:37)
[2023-09-28] MEDS: LANTUS PER UNIT CHARGE SC SCH (21:58)
[2023-09-28] MEDS: LACTATED RINGER'S 1,000 ML IV SCH (22:01)
[2023-09-29] MEDS: POLYETHYLENE (MIRALAX) 17 GM PACK PO SCH (05:49)
--- NOTE | 2023-09-29 07:46 | Hospitalist Progress Note ---
Date of Service September 29, 2023 Assessment & Plan (1) Degenerative cervical spinal stenosis: Plan: left cervical radiculopathy s/p discectomy and fusion s/p C3-C4 Anterior Cervical Discectomy and Fusion(Not Applicable) - Marlo Brunner MD on 09/27. EBL 4cc Post-op management per primary service WBC wnl, afebrile. Hgb stable at 12 on repeat Chemistries stable, lisinopril continued Of note, prior elevations in Ca to 10.5 w/ listed hx Vit D deficiency. Checked Vit D, was LOW at 23.5 and sent rx for low dose vitamin D but should have f/u with PCP for ongoing management. Patient anticipating discharge today. Hospitalist service will sign off at this time. Please call with any questions/concerns. (2) Type 2 diabetes mellitus: Plan: Type II DM On basal bolus insulin PRACTICE ADVISOR Metformin held Basal bolus insulin, goal BSG [id number] postoperatively. Pharmacy glycemic consult in place (3) Depression with anxiety: Plan: Depression/anxiety Continue fluoxetine -- resumed for this morning (4) Asthma: Plan: No wheezing at bedside May use albuterol every 6 hours as needed as needed. No evidence of acute exacerbation No wheezing, on room air (5) Hypertension: Plan: Hypertension Continue verapamil, normotensive at bedside assessment Lisinopril held by RN this AM until labs resulted. Stable BUN/Cr and no lightheaded/dizziness and BP stable and was continued BP 151/65 this morning (6) Vitamin D deficiency: Plan: checked due to reported history as well as Ca 10.6 on pre-op labs with normal albumin NOT on supplementation at baseline. Does not appear to have hx kidney stones/etc Starting PO Vitamin D and discussed w/ patient to f/u PCP about ongoing management/monitoring Plan DVT prophylaxis: Per primary team Diet: DM 2 Disposition: Medical surgical, patient planning for dc today Hospitalist service will sign off at this time. Please call with any questions/concerns. Admission and Anticipated Discharge Date Admission Date: September 28, 2023 Supervising Physician Co-Signing Physician Notes The patient was not seen by me. The chart was reviewed. Case discussed with DONTA Arteaga. Agree with assessment and plan Subjective Eval this morning, sitting up in bed, no acute distress. Feeling well. Some numbness/tingling in hands but improving. Labs stable. No lightheaded/dizziness, no CP/SOB, abdominal pain, nausea/vomiting. Is passing gas, tolerating diet. Pain well controlled with tylenol at this time. Anticipating discharge today. Questions/concerns addressed at this time. Vit D checked given prior elevated Ca, low. Not on supplementation. Discussed should be and will send note to PCP for follow up. Physical Exam Physical Exam: General: A&Ox3. NAD. Cooperative. sitting up at the side of the bed Head atraumatic, normocephalic, cervical collar in place, trachea midline, no stridor Resp even/unlabored, no w/c/r, on room air CV: RRR, faint systolic GI: +BS, soft/NT : no alex MSK/Neuro:Paresthesias of the L hand, but sensation to soft touch is grossly intact (improved per patient). service officer strength intact but fatigues easily. radial pulse intact. Psych: AOx3, cooperative and pleasant with exam Results & Data Results & Data Vital Signs (Past 12 Hours) Vital Signs Temp Pulse Resp BP Pulse Ox O2 Del Method O2 Flow Rate 09/29/23 07:32 36.8 C 67 16 151/65 H 98 Room Air 09/29/23 05:25 36.7 C 68 16 150/67 H 98 Nasal Cannula 1 09/29/23 03:21 36.8 C 74 16 151/68 H 98 Room Air 09/29/23 02:58 76 16 96 Nasal Cannula 1 09/29/23 01:21 36.9 C 70 16 119/67 97 Nasal Cannula 2 09/29/23 00:05 16 96 Nasal Cannula 1 09/28/23 23:21 36.8 C 78 16 131/61 96 Nasal Cannula 2 09/28/23 21:28 78 16 98 Nasal Cannula 1 09/28/23 20:46 36.8 C 76 16 135/65 99 Nasal Cannula 2 09/28/23 20:45 Nasal Cannula 2 Laboratory Results 09/29/23 09/28/23 09/28/23 Range/Units 07:42 21:18 16:28 POC Glucose 112 H 183 H 245 H (70-99) mg/dl 09/28/23 09/28/23 09/28/23 Range/Units 12:15 10:51 09:48 POC Glucose 217 H 175 H 142 H (70-99) mg/dl 09/28/23 09/28/23 Range/Units 08:52 08:11 POC Glucose 119 H 90 (70-99) mg/dl Diagnostic Findings Cervical Spine X-Ray 09/28/23 07:15 FL cervical 2-3V CLINICAL HISTORY: ACDF C3-C4 COMPARISON STUDY: MRI of the cervical spine June 30, 2023. Cervical spine radiographs September 03, 2023. FLUOROSCOPY TIME: 1 minute and 5 seconds. Ka, r: 10.61 mGy FLUOROSCOPIC IMAGES: 7 FINDINGS: Fluoroscopy was provided during C3-C4 anterior discectomy and fusion. There are no unexpected radiopaque foreign bodies. Hardware is intact. An endotracheal tube is partially imaged. IMPRESSION: Fluoroscopy provided during C3-C4 anterior discectomy and fusion. ACT 112: Negative or not required by law. Electronically signed by: Ermias Spring M.D. 09/28/2023 11:04 AM PG Care Time/CCT Total # of Minutes Spent Total Time Spent with Patient: Total time spent is greater than 50% in coordination of care (as documented) at patient's floor/unit and/or counseling patient: Coding Level of Care Code 74741 SUB INP/OBS CARE 2/35MIN Diagnoses Degenerative cervical spinal stenosis M48.02 Type 2 diabetes mellitus E11.9 Depression with anxiety F41.8 Asthma J45.909 Hypertension I10 Vitamin D deficiency E55.9
--- NOTE | 2023-09-29 07:51 | Orthopedic Progress Note ---
Date of Service September 29, 2023 Subjective Patient seen and examined, she notes definite improvement in her upper extremities especially in the left side in terms of pain numbness and tingling. No swallowing issues. Exam reveals her to have appropriate motor strength in the upper extremities, incision site is unremarkable. Impression/plan: Patient is doing well status post her C3-4 ACDF postop day 1, I discussed with her home care, she can be discharged today. She relates that she is doing well on just Tylenol I will take this as a pain medicine. I also discussed with her not taking anti-inflammatories for at least 2 months, she is in agreement with this plan we will see her in the office in 2 weeks. Review of Systems All systems reviewed & are unremarkable except as noted in HPI & below. Physical Exam . Results & Data Results & Data Laboratory Results . Diagnostic Findings . PG Care Time/CCT Total # of Minutes Spent Total Time Spent with Patient: Total time spent is greater than 50% in coordination of care (as documented) at patient's floor/unit and/or counseling patient: Coding Level of Care Code 88405 Post Operative Follow-Up
--- NOTE | 2023-09-29 07:56 | Operative Report ---
PG Post Operative Report Pre & Post Diagnosis Operation Date: 09/28/23 07:15 Pre-Op Diagnosis: Spinal Stenosis Myelomalacia Post-Op Diagnosis: Spinal Stenosis Myelomalacia I identified the patient and participated in the time-out.: Yes Procedure Operation Date: 09/28/23 07:15 Actual Procedures p C3-C4 Anterior Cervical Discectomy and Fusion(Not Applicable) - Marlo Brunner MD Surgeon Marlo Brunner MD Batch Unloader none Estimated Blood Loss 4 Findings Consistent with Post-Op Diagnosis Specimens none Description of Procedure 1. C3-4 anterior cervical decompression with arthrodesis. (68582) 2. Insertion of intervertebral device/cage, TREY-C, 12 mm x 14 mm x 6 mm lordotic. (48703) Patient was taken to the operating room after adequate anesthesia was carefully positioned supine on the OSI flat top table. After doing so a preprepped was performed followed by positioning. C arm was utilized to olivia the approximate location of the incision for the C3-4 level followed by prepping and draping. I began the procedure with a left-sided transverse incision at the sternocleidomastoid, and then from there advanced down in standard fashion to the anterior as aspect of the cervical spine. I confirmed our location with fluoroscopy followed by then placement of distractor pins at C3 and C4 using fluoroscopic control. With these now in place, retractors were set, and to begin the procedure after bringing in the operative microscope and making anterior annulotomy followed by then removal of the disc material. This include d all disc material out to the uncinates, cartilage from the endplates. I continued this process working posteriorly where I then used a high-speed bur to thin and remove the spondylosis, and then utilize combination of curettes and Kerrison punches to complete the decompression across the interspace down to the dura and out into the uncinates on both sides. With the decompression completed, I then went through trials selecting a size cage as noted, this was obtained and I factor was placed within the cage. The cage was tapped into position and then I used the guide to insert the blades going cephalad and caudally with excellent position. Final images were obtained, the operative site was unremarkable, irrigation was performed along some vancomycin powder and closed using 3-0 Vicryl sutures and Steri-Strips for the skin along the sterile dressing. Patient was taken recovery room in satisfactory condition. I attest to the content of the Intraoperative Record and any orders documented therein. Any exceptions are noted below.
[2023-09-29] MEDS: VERAPAMIL HCL 120 MG TABCR PO SCH (08:09)
[2023-09-29] MEDS: lisinopril 40 MG TAB PO SCH (08:09)
[2023-09-29 08:34] LABS: Hematocrit (blood only) 36.2 % (37.0-47.0); Mean Corpuscular Hemoglobin 30.8 pg (25.0-34.0); Mean Corpuscular Hgb Conc 33.1 g/dL (32.0-36.0); Mean Corpuscular Volume 93.1 fL (80.0-100.0); Mean Platelet Volume 11.2 fL (9.4-12.4); Platelet Count 179 K/uL (130-400); RDW Coefficient of Variation 13.5 % (11.5-14.5); RDW Standard Deviation 46.4 fL (36.4-46.3); Red Blood Count 3.89 M/uL (4.20-5.40); White Blood Count 8.33 K/ul (4.8-10.8)
[2023-09-29 08:36] LABS: BUN Creatinine Ratio 21.8 (10-20); Calcium 9.8 mg/dl (8.6-10.3); Creatinine Clr Calc Pharmacy 48.2 ml/min; Est GFR (African American) 72.9 ml/min; Est GFR (Non-African American) 62.9 ml/min; Magnesium 1.8 mg/dl (1.7-2.4); Potassium 4.1 mmol/L (3.5-5.1)
[2023-09-29] MEDS: FLUoxetine HCL 20 MG CAP PO SCH (09:18)
--- NOTE | 2023-09-29 10:18 | Discharge Summary ---
Date of Service September 29, 2023 Admission HPI Per Admitting Provider 09/03/23: 78-year-old female referred here by Dr. Mccall for evaluation of upper extremity numbness and tingling. Patient is accompanied by her daughter, she is status post a right knee replacement which is doing well. She notes she has bilateral upper extremity numbness and tingling which she has had for years left greater than right she is status post bilateral carpal tunnel release but this was at least 20 years ago. She did undergo EMG nerve conductions May 24, 2023, but continues to have symptoms, she has had decreased and fine dexterity and also is even having some subtle changes in her ambulation unsteady in her gait. She is also noticed generalized weakness in both upper extremities, the numbness and tingling in both hands is present almost all times. Patient does do some home cervical physical therapy 7 days a week but it does not improve her symptoms. Review of MRI images of the cervical spine from [facility] from June 30, 2023 was performed, this my separate interpretation, this reveals the patient to have degenerative changes from C3 down to T1 with varying degrees of disc degeneration disc bulging, the most significant severe central stenosis is at C3-4, where there is evidence of signal change within the cord, it is combination of disc bulge and/or protrusion and spondylosis accompanied by posterior ligamentous infolding. There is lesser degrees of stenosis at C4-5, C 5-6 and C6-7 but still present, foraminal stenosis varies from mild to severe with each level. Mild to moderate foraminal stenosis at C7-T1, severe bilaterally slightly less so on the left at C6-7 okay C5-6 has similar results as noted at C6-7 C4-5 has mild left foraminal stenosis and more moderate severe on the right. It is to note that the signal change in the cord is not mentioned in the radiologist note. EMG report by Dr. Carpenter from May 24, 2023 reveals the patient to have findings consistent with residual carpal tunnel syndrome but not sufficient to explain the current constant numbness in both hands, and EMG reveals some low- grade chronic neurogenic changes suggest a potential low-grade bilateral C6-7 motor radiculopathy. Impression: Cervical stenosis to varying degrees multilevel but with myelomalacia involving the segment of cord at the C3-4 level. Plan: Today I spent a fair amount of time talking with the patient and her daughter, reviewed the imaging studies and went over the findings. At this time I told her that by far the main problem is at C3-4 where there is cord changes due to the amount of stenosis and most likely increased motion at this level secondary to the stiffness relative to the degenerative changes below this region. I related that surgical intervention can be considered for virtually all the levels in the cervical spine, but due to issues with dysphagia, I feel would be best to approach this with the most severe level which is a C3-4. Specifically this would be an anterior cervical decompression and fusion. I related that what we would do is then to give her time to heal from this and depending on how she does relative to any dysphagia, if needed relative to her upper extremity symptoms we will consider adding in the other levels down the C6-7 but also discussed that there is always a possibility of a posterior surgical procedure which also could be considered. Will also provide her left wrist brace due to these findings which I think related carpal tunnel as noted on the EMG nerve conduction study, and also for her to an upper extremity specialist relative to the fact that she will need I think bilateral upper extremity revision carpal tunnel releases. They are in agreement with this plan we will work to get this scheduled for her in the near future. 09/16/23: Patient returns for follow-up before her C3-4 anterior cervical decompression and fusion on September 27 due to spinal stenosis myelomalacia. She reports no no change in her symptoms. No change in examination, some limited axial symptoms on range of motion. Impression: Cervical stenosis with myelomalacia patient, multilevel degeneration. Plan: Today at this time I reviewed with the patient the hospital postoperative course, the nature of the surgery and how it will be performed. She will follow-up 2 weeks after the surgery, will check on vitamin D deficiency. Admission Exam Per Admitting Provider Exam reveals the patient to have reasonably good flexion extension no significant symptoms at endpoint, Spurling's maneuver was more limited just axial symptoms. Hqsh-fi-qvak rotation just revealed crepitation. Upper extremity reflexes were all 1-2/4 for biceps brachioradialis and more so for triceps at 2/4. She had hyperreflexia for the left knee, the right knee still revealed at least 1-2/4 knee reflex. She had a positive Lam sign bilaterally, and all her motor groups both upper extremities were in the range of 4 to 4+/5 including finger abduction. She has a very positive Tinel's at both wrists and slightly less so at the elbows. Flexion-extension views were reviewed for today's office of the cervical spine reveal on routine lateral view to be relatively straight, on the extension views there is some return of the lordosis, on flexion views these reveal some limited anterolisthesis changes but this is minimal 1-2 mm change at most. Principal Diagnosis Same as "Discharge Diagnosis" noted below under Discharge Instructions. Discharge Exam GENERAL: AA&Ox3, NAD. Pleasant, affect is calm. Lying in bed with soft c-collar donned, well-fitting. RESPIRATORY: Normal respiratory effort with no signs of distress. CHEST/AXILLA: Chest movement symmetrical. No deformities noted. CARDIOVASCULAR: No edema noted. SKIN: [place], warm and dry. MS/EXTREMITY: Left-sided anterior neck dressing c/d/i. Median/Ulnar/Radial nerve distributions intact to sensory/motor. Radial pulse intact, 2+. NEURO: Diminished sensation to bilateral hands/digits (improved from prior to prior to surgery). Discharge Data Allergies Allergy/AdvReac Type Severity Reaction Status Date / Time aspirin Allergy Severe Swelling, Verified 09/28/23 06:21 anaphylaxis ("[facility] allergy tested-tolerated 81mg") ibuprofen Allergy Severe Swelling Verified 09/28/23 06:21 anaphylaxis (motrin) NSAIDS (Non-Steroidal Allergy Severe Anaphylaxis Verified 09/28/23 06:21 Anti-Inflamma (motrin) geri Allergy Severe Dyspnea Verified 09/28/23 06:21 Sulfa (Sulfonamide Allergy Severe Anaphylaxis Verified 09/28/23 06:21 Antibiotics) adhesive Allergy Intermediate Rash Verified 09/28/23 06:21 gluten Allergy Intermediate Asthma Verified 09/28/23 06:21 peanut AdvReac Intermediate Flatulence Verified 09/28/23 06:21 Consultations 09/28/23 10:47 Consult Hospitalist Routine Procedures Performed Operation Date: 09/28/23 07:15 Actual Procedures p C3-C4 Anterior Cervical Discectomy and Fusion(Not Applicable) - Marlo Brunner MD Ordered Studies 09/28/23 07:15 FL cervical 2-3V Routine Cervical Spine X-Ray 09/28/23 07:15 FL cervical 2-3V CLINICAL HISTORY: ACDF C3-C4 COMPARISON STUDY: MRI of the cervical spine June 30, 2023. Cervical spine radiographs September 03, 2023. FLUOROSCOPY TIME: 1 minute and 5 seconds. Ka, r: 10.61 mGy FLUOROSCOPIC IMAGES: 7 FINDINGS: Fluoroscopy was provided during C3-C4 anterior discectomy and fusion. There are no unexpected radiopaque foreign bodies. Hardware is intact. An endotracheal tube is partially imaged. IMPRESSION: Fluoroscopy provided during C3-C4 anterior discectomy and fusion. ACT 112: Negative or not required by law. Electronically signed by: Ermias Spring M.D. 09/28/2023 11:04 AM Hospital Course (1) Degenerative cervical spinal stenosis: (2) Myelomalacia of cervical cord: (3) S/P cervical spinal fusion: On September 29, 2023 Trinh arrived at [facility] operating room and underwent a C3-4 anterior cervical disc fusion without complications. Patient had a general anesthetic for the procedure. Postoperatively, patient was transferred to the general orthopedic floor in stable condition and patient practiced early ambulation for DVT prophylaxis as appropriate. Patient's hospital course was uneventful. On postoperative day #1, patient's vital signs were stable and pain was well-controlled. Patient was able to participate well with therapy, safely performing the necessary ambulation and ADL tasks. Patient was then discharged home in stable condition, witself-care and assistance from friends and neighbors. Patient will follow-up with orthopedics (Dr. Brunner) in 2 weeks for postoperative care. Plan 78-year-old woman POD# 1 s/p C3-[address] Brunner on 09/28/2023, doing well overall. Pain is well-controlled; she is only having to utilize acetaminophen. Medically stable. Patient is neurologically intact. Plan: 1. DVT prophylaxis w/ early ambulation. 2. PT/OT as tolerated. Soft c-collar instructions per Dr. Brunner. 3. Pain control doing well with current regimen. 4. Disposition - plan to D/C home w/ self-care later today once cleared by PT/OT. 5. F/u as scheduled w/ first post-op visit. Total Time Total Time Spent Total Time Spent (In Minutes): Total Time Spent with Patient: Total time spent is greater than 50% in coordination of care (as documented) at patient's floor/unit and/or counseling patient: Discharge Plan Discharge Items Patient Disposition: Home - Self-Care Reason For Visit: Carpal Tunnel Syndrome of Left Wrist, Carpal Tunne Discharge Diagnosis: s/p cervical spine C3-4 ACDF Activity: As commented below Non-emergency contact: Primary Care Provider and Surgeon Call non-emergency contact if: your wound has increased redness, your wound has increased drainage and your wound pain has increased Follow-up/Referrals: Swetha Bryant MD [Primary Care Provider] - Marlo Brunner MD [Surgeon] - Diet: Regular Addtl Attending Provider Instructions: May shower on 3rd day after surgery. You can wash the incision and surgical site with soap and water briefly and then blot dry with a clean towel/cloth. Cover with a new, sterile dry dressing. If unable to change your dressing, then leave hospital dressing intact and cover the area for showering. Do NOT soak incision. No strenuous activity, lifting, or exercise until further instructed. Use mowc-rej-kurvpwc Tylenol as needed for pain relief -- follow directions on the bottle; limit to 4,000 mg maximum in a 24-hour period. No use of NSAIDs for at least 2 months after surgery. Pending Studies at Discharge: No Stand-Alone Forms: My [employer], Smoking Cessation Medications and DC Order Prescriptions: New cholecalciferol (vitamin D3) [Vitamin D3] 25 mcg (1,000 unit) capsule 25 mcg PO DAILY Qty: 30 0RF acetaminophen [Tylenol Extra Strength] 500 mg Tablet 1,000 mg PO Q8H PRNQty: 0 0RF Rx Instructions: OTC Continued (DME) blood-glucose meter [Contour Next Meter] Misc See Rx Instructions .Route Qty: 1 0RF Rx Instructions: Test blood sugars 4 times a day (DME) Contour Next Test Strips Strip See Dose Instructions .ROUTE .MEDSUPPLY Qty: 400 0RF Dose Instruction: As directed Rx Instructions: Test 4 times daily verapamil 120 mg tablet extended release 120 mg PO QAM Qty: 90 1RF Rx Instructions: Take 1 tablet by mouth once daily (DME) insulin syringe-needle U-100 [BD Insulin Syringe Ultra-Fine] 1 mL 30 gauge x 1/2" syringe See Rx Instructions .Route Qty: 100 5RF Rx Instructions: use three per day fluoxetine 40 mg capsule 40 mg PO QAM Qty: 90 3RF (DME) pen needle, diabetic [BD Ultra-Fine Laurita Pen Needle] 32 gauge x 5/32" needle See Rx Instructions .Route Qty: 400 3RF Rx Instructions: use a new pen needle with each injection--4 injections daily baclofen 5 mg tablet 5 - 10 mg PO DAILY PRN (Reason: pain) Qty: 20 0RF insulin lispro 100 unit/mL solution See Rx Instructions .ROUTE .COMPLEX MDD 25 units Qty: 10 2RF Dose Instruction: INJECT FIVE UNITS UNDER THE SKIN THREE TIMES DAILY WUTH EACH MEAL PLUS SLIDI NG SCALE Rx Instructions: INJECT FIVE UNITS UNDER THE SKIN THREE TIMES DAILY WUTH EACH MEAL PLUS SLIDING SCALE (DME) FreeStyle Vicky 3 Sensor Device See Rx Instructions .Route Qty: 2 5RF Rx Instructions: change sensor Q14D lisinopril [Zestril] 40 mg tablet 40 mg PO QAM Qty: 30 5RF metformin 500 mg tablet extended release 24 hr 1,000 mg PO BID 30 Days Qty: 120 5RF (DME) lancets [Microlet Lancet] Misc See Rx Instructions .Route Qty: 200 2RF Rx Instructions: use 4x daily to check blood sugar albuterol sulfate [Ventolin HFA] 90 mcg/actuation HFA aerosol inhaler See Rx Instructions inhalation .COMPLEX PRN (Reason: shortness of breath or wheezing) Qty: 8.5 0RF Rx Instructions: 1-2 INH 4-6 PRN; camgkamsjstt-jcwd-enslq acid 18-400 mg-mcg Tablet 1 tab PO QAM insulin degludec [Tresiba FlexTouch U-100] 100 unit/mL (3 mL) insulin pen 20 unit subcut QPM pantoprazole 40 mg tablet,delayed release (DR/EC) 40 mg PO QAM PRN (Reason: reflux) manganese 15 mg Capsule 15 mg PO DAILY Discontinued acetaminophen [Tylenol Extra Strength] 500 mg Tablet 500 mg PO BID PRN (Reason: Pain) diclofenac sodium 1 % gel 2 g topical QID PRN (Reason: Pain) Patient Comments: uses prn pain Rx Instructions: apply to knee Discharge Orders: Discharge Order (Routine); Ordered 09/29/23 Ordered By: Rigo Head/Other Patient Handouts: DVT Post Op Prevention, Cervical Fusion Dc Admission Data Admit Date/Time: 09/28/23 10:41 Attending Provider: Marlo Brunner Admit Provider: Marlo Brunner Primary Care Provider: Swetha Bryant Other Providers: Nelson Savage; Roberta Domingo; Jonh Ramírez; Ty Randall; Ti Hair; Rigo Flores; Honey Irizarry; Kate Cuevas; Kaur Martínez; Noble Toro; Kendall Fontanez; Yaz López; Arnaldo Dominguez; Jonh Love; Tate Cevallos; Karely Cobb; Simran Roe; Alida Quiñonez; Jeremy Cardozo; Brooke Zurita; Yonas Pickens; Marin Troy; Chavez Ariza; Ara Dubon; Pat Sim; Tyrell Weiss; Lina Asif; Ty De Leon; Ti Shelley; Shruthi Albright
[2023-09-29] MEDS ORDERED: LANTUS PER UNIT CHARGE SC SCH (21:00)
[2023-09-29] MEDS ORDERED: LANTUS PER UNIT CHARGE SQ SCH (21:00)
== END 2023-09-29 11:00 | disposition home or self-care (01) ==
LOC: ASU 05:43 → 3E 05:43